=== PATIENT | male | born 1945 | race Caucasian/White ===

== ENCOUNTER 2018-08-02 11:58 | Inpatient (IN) | payer MEDICARE, OTHER ==
[2018-08-02] MEDS ORDERED: IPRATROPIUM (NEB) 0.5 MG/2.5 ML AMP NEB (13:38)
[2018-08-02] MEDS: DEXAMETHASONE (1 MG/ML PO SYG) PO (14:04)
[2018-08-02] MEDS: ALBUTEROL 0.083% (NEB) 2.5 MG/3 ML AMP NEB (14:18)
[2018-08-02] MEDS: IPRATROPIUM (NEB) 0.5 MG/2.5 ML AMP HHN (14:19)
[2018-08-02 16:59] LABS: ADD MAN DIFF? NO
[2018-08-02 17:00] LABS: WHITE BLOOD COUNT 9.7 10^3/ul (4.8-10.8)
[2018-08-02 17:00] LABS: BASOPHILS % 0.4 % (0.0-2.0); EOSINOPHILS # 0.1 10^3/ul (0.0-0.5); EOSINOPHILS % 0.6 % (0.0-7.0); HEMATOCRIT 37.7 % (42.0-52.0); HEMOGLOBIN 11.8 g/dl (14.0-18.0); LYMPHOCYTES # 0.8 10^3/ul (0.8-2.9); LYMPHOCYTES % 7.9 % (15.0-51.0); MEAN CORPUSCULAR HEMOGLOBIN 26.3 pg (29.0-33.0); MEAN CORPUSCULAR HGB CONC 31.3 g/dl (32.0-37.0); MEAN CORPUSCULAR VOLUME 84.2 fl (82.0-101.0); MEAN PLATELET VOLUME 9.4 fl (7.4-10.4); MONOCYTE # 0.3 10^3/ul (0.3-0.9); NEUTROPHIL # 8.5 10^3/ul (1.6-7.5); NEUTROPHILS % 87.5 % (39.0-77.0); PLATELET COUNT 254 10^3/UL (140-415); RED BLOOD COUNT 4.48 10^6/ul (4.70-6.10); RED CELL DISTRIBUTION WIDTH 14.4 % (11.5-14.5)
[2018-08-02 17:18] LABS: ALANINE AMINOTRANSFERASE 15 IU/L (13-69); ALBUMIN 4.5 g/dl (3.3-4.9); ALBUMIN/GLOBULIN RATIO 1.25; ALKALINE PHOSPHATASE 99 IU/L (42-121); ANION GAP 11 (5-13); ASPARTATE AMINO TRANSFERASE 15 IU/L (15-46); BILIRUBIN,INDIRECT 0.3 mg/dl (0-1.1); BILIRUBIN,TOTAL 0.3 mg/dl (0.2-1.3); BLOOD UREA NITROGEN 18 mg/dl (7-20); CARBON DIOXIDE 33 mmol/L (21-31); CHLORIDE 98 mmol/L (97-110); CREATININE 0.82 mg/dl (0.61-1.24); GLUCOSE 212 mg/dl (70-220); POTASSIUM 3.2 mmol/L (3.5-5.1); SODIUM 142 mmol/L (135-144); TOTAL PROTEIN 8.1 g/dl (6.1-8.1)
[2018-08-02] MEDS ORDERED: ONDANSETRON 4 MG INJ IV ×2 (18:00→20:30)
[2018-08-02] MEDS ORDERED: ACETAMINOPHEN 325 MG TAB PO ×2 (18:00→20:30)
[2018-08-02] MEDS ORDERED: GUAIFENESIN/CODEINE 5ML CUP PO (20:30)
[2018-08-02] MEDS ORDERED: HYDROCODONE/APAP (5/325) TAB PO (20:30)
[2018-08-02] MEDS ORDERED: ALBUTEROL/IPRATROPIUM (NEB) 3 ML AMP HHN (20:30)
[2018-08-02] MEDS ORDERED: NACL 0.9% 3 ML SYG IV (20:30)
[2018-08-02] MEDS ORDERED: GLUCOSE GEL 15 GRAM TUBE PO ×2 (21:30)
[2018-08-02] MEDS ORDERED: DEXTROSE 50% 50 ML SYRINGE IV ×2 (21:30)
[2018-08-02] MEDS ORDERED: GLUCOSE GEL 15 GRAM TUBE BUCCAL (21:30)
[2018-08-02] MEDS ORDERED: GLUCAGON 1 MG INJ IM (21:30)
[2018-08-02] MEDS: BUDESONIDE (NEB) 0.5MG/2ML AMP HHN (21:55)
[2018-08-02] MEDS: CEFEPIME 1GM/50 ML (PMX) 50 ML IVPB (22:04)
[2018-08-02] MEDS: POTASSIUM CHLORIDE 20 MEQ POWDER FOR ORAL SOLN PO (22:05)
[2018-08-02] MEDS: predniSONE 5 MG TAB PO (22:05)
[2018-08-02] MEDS: TAMSULOSIN (SR) 0.4 MG CAP PO (22:09)
[2018-08-02] MEDS: INSULIN ASPART [NOVOLOG] 3 ML PEN SC (22:22)
[2018-08-02] MEDS: SOD CHLORIDE 0.9% 1,000 ML IV (22:25)
[2018-08-03] MEDS: ACCU-CHEK XX (02:00)
[2018-08-03 05:22] LABS: ADD MAN DIFF? NO
[2018-08-03 05:26] LABS: WHITE BLOOD COUNT 8.9 10^3/ul (4.8-10.8)
[2018-08-03 05:26] LABS: BASOPHILS % 0.2 % (0.0-2.0); EOSINOPHILS % 0.1 % (0.0-7.0); HEMATOCRIT 35.9 % (42.0-52.0); HEMOGLOBIN 11.5 g/dl (14.0-18.0); LYMPHOCYTES # 0.6 10^3/ul (0.8-2.9); LYMPHOCYTES % 7.2 % (15.0-51.0); MEAN CORPUSCULAR HEMOGLOBIN 26.7 pg (29.0-33.0); MEAN CORPUSCULAR VOLUME 83.5 fl (82.0-101.0); MEAN PLATELET VOLUME 9.6 fl (7.4-10.4); MONOCYTE # 0.4 10^3/ul (0.3-0.9); MONOCYTES % 4.1 % (0.0-11.0); NEUTROPHIL # 7.8 10^3/ul (1.6-7.5); NEUTROPHILS % 87.9 % (39.0-77.0); PLATELET COUNT 236 10^3/UL (140-415); RED CELL DISTRIBUTION WIDTH 14.3 % (11.5-14.5)
[2018-08-03 06:23] LABS: ALANINE AMINOTRANSFERASE 14 IU/L (13-69); ALBUMIN 4.2 g/dl (3.3-4.9); ALBUMIN/GLOBULIN RATIO 1.31; ALKALINE PHOSPHATASE 84 IU/L (42-121); ANION GAP 8 (5-13); ASPARTATE AMINO TRANSFERASE 18 IU/L (15-46); BILIRUBIN,INDIRECT 0.5 mg/dl (0-1.1); BILIRUBIN,TOTAL 0.5 mg/dl (0.2-1.3); BLOOD UREA NITROGEN 18 mg/dl (7-20); CALCIUM 9.9 mg/dl (8.4-10.2); CARBON DIOXIDE 29 mmol/L (21-31); CHLORIDE 103 mmol/L (97-110); CHOLESTEROL 151 mg/dl (100-200); CREATININE 0.62 mg/dl (0.61-1.24); GLUCOSE 232 mg/dl (70-220); HDL CHOLESTEROL 49 mg/dl (31-75); LDL CHOLESTEROL,CALCULATED 88 mg/dl; MAGNESIUM 2.3 mg/dl (1.7-2.5); POTASSIUM 4.2 mmol/L (3.5-5.1); SODIUM 140 mmol/L (135-144); TOTAL PROTEIN 7.4 g/dl (6.1-8.1); TRIGLYCERIDES 72 mg/dl (0-149)
[2018-08-03] MEDS: PANTOPRAZOLE (EC) 40 MG TAB PO (06:36)
[2018-08-03] MEDS: ALBUTEROL/IPRATROPIUM (NEB) 3 ML AMP HHN ×3 (08:00→14:24)
[2018-08-03] MEDS: INSULIN ASPART [NOVOLOG] 3 ML PEN SC ×2 (08:20→12:40)
[2018-08-03] MEDS: FINASTERIDE 5 MG TAB PO (08:21)
[2018-08-03] MEDS: ASPIRIN (EC) 81 MG TAB PO (08:21)
[2018-08-03] MEDS: NIFEdipine (XL) 90 MG TAB PO (08:22)
[2018-08-03] MEDS: HYDROCHLOROTHIAZIDE 25 MG TAB PO (08:22)
[2018-08-03] MEDS: predniSONE 5 MG TAB PO (08:22)
[2018-08-03] MEDS: BUDESONIDE (NEB) 0.5MG/2ML AMP HHN ×2 (08:45→11:36)
[2018-08-03 10:20] LABS: THYROID STIMULATING HORMONE 0.422 MIU/L (0.465-4.680)
[2018-08-03] MEDS: LISINOPRIL 20 MG TAB PO (10:22)
[2018-08-03 11:52] LABS: HEMOGLOBIN A1C 6.5 % (0-5.9)
[2018-08-03] MEDS ORDERED: ATORVASTATIN 20 MG TAB PO (21:00)
== END 2018-08-03 14:57 | disposition home or self-care (01) | DRG 202 ==
LOC: FTE 11:58 → MS1 17:42
DX: J20.8 Acute bronchitis due to other specified organisms (principal); J86.9 Pyothorax without fistula; Z85.46 Personal history of malignant neoplasm of prostate; R91.1 Solitary pulmonary nodule
CPT/HCPCS: 71046; 71250; 80053; 80061; 82962; 83036; 83735; 84443; 85025; 94640; 94664; 99285-25

== ENCOUNTER 2018-09-27 12:24 | Emergency (ER) | payer SELFPAY, OTHER, MEDICARE | END 2018-09-27 15:00 | disposition left against medical advice (07) | LOC: E/R 12:24 | DX: Z53.21 Procedure and treatment not carried out due to patient leaving prior to being seen by health care provider (principal) ==

== ENCOUNTER 2018-10-23 02:37 | Inpatient (IN) | payer MEDICARE, OTHER ==
[2018-10-23 02:56] LABS: ADD MAN DIFF? NO
[2018-10-23 02:58] LABS: BASOPHIL # 0.1 10^3/ul (0.0-0.1); BASOPHILS % 0.7 % (0.0-2.0); EOSINOPHILS # 0.3 10^3/ul (0.0-0.5); EOSINOPHILS % 2.2 % (0.0-7.0); HEMATOCRIT 36.7 % (42.0-52.0); HEMOGLOBIN 11.4 g/dl (14.0-18.0); MEAN CORPUSCULAR HEMOGLOBIN 25.9 pg (29.0-33.0); MEAN CORPUSCULAR HGB CONC 31.1 g/dl (32.0-37.0); MEAN CORPUSCULAR VOLUME 83.2 fl (82.0-101.0); MEAN PLATELET VOLUME 9.3 fl (7.4-10.4); MONOCYTE # 1.1 10^3/ul (0.3-0.9); MONOCYTES % 8.4 % (0.0-11.0); NEUTROPHILS % 64.2 % (39.0-77.0); PLATELET COUNT 314 10^3/UL (140-415); RED BLOOD COUNT 4.41 10^6/ul (4.70-6.10); RED CELL DISTRIBUTION WIDTH 14.4 % (11.5-14.5)
[2018-10-23 02:58] LABS: WHITE BLOOD COUNT 12.5 10^3/ul (4.8-10.8)
[2018-10-23] MEDS: IPRATROPIUM (NEB) 0.5 MG/2.5 ML AMP INH (02:59)
[2018-10-23] MEDS: ALBUTEROL 0.5% (NEB) 2.5 MG/0.5 ML AMP INH (02:59)
[2018-10-23] MEDS: METHYLPREDNISOLONE 125 MG INJ IV ×2 (03:08→08:45)
[2018-10-23] MEDS: CEFEPIME 2GM/50 ML (PMX) 50 ML IVPB (03:08)
[2018-10-23 03:17] LABS: ALANINE AMINOTRANSFERASE 17 IU/L (13-69); ALBUMIN 4.3 g/dl (3.3-4.9); ALKALINE PHOSPHATASE 105 IU/L (42-121); ANION GAP 12 (5-13); ASPARTATE AMINO TRANSFERASE 18 IU/L (15-46); BILIRUBIN,INDIRECT 0.3 mg/dl (0-1.1); BILIRUBIN,TOTAL 0.3 mg/dl (0.2-1.3); BLOOD UREA NITROGEN 28 mg/dl (7-20); CALCIUM 9.9 mg/dl (8.4-10.2); CARBON DIOXIDE 29 mmol/L (21-31); CHLORIDE 105 mmol/L (97-110); GLUCOSE 129 mg/dl (70-220); POTASSIUM 3.2 mmol/L (3.5-5.1); SODIUM 146 mmol/L (135-144); TOTAL PROTEIN 7.6 g/dl (6.1-8.1)
[2018-10-23 03:29] LABS: B-TYPE NATRIURETIC PEPTIDE 476 PG/ML (0-125); TROPONIN-I < 0.012 ng/ml (0.000-0.120)
[2018-10-23 03:32] LABS: AADO2 Arterial 92.6 mmHg (7.0-24.0); Allen Test ACCEPTAB; Arterial Base Excess 2.1 mmol/L (-3.0-3); Arterial Blood Gas Oxygen Sat 99.5 mmHG (95.0-100.0); Arterial COHb 0.2 % (0.0-3.0); Arterial Fraction of Oxyhgb 98.9 % (93.0-99.0); Arterial HCO3 27.6 mmol/L (22.0-26.0); Arterial MetHb 0.4 % (0.0-1.5); Arterial pCO2 46.6 mmhg (35-45); Blood Gas IEPAP 16/5; Blood Gas PS 11; MODE MASK - BIPAP; Site Right Radial
[2018-10-23 03:40] LABS: INR 0.79; PROTIME 11.1 Sec (11.9-14.9); PT RATIO 0.9
[2018-10-23] MEDS: VANCOMYCIN 1 GM (PMX) 250 ML IVPB (03:40)
[2018-10-23 03:41] LABS: PARTIAL THROMBOPLASTIN TIME 28.1 Sec (23.0-35.0)
[2018-10-23] MEDS ORDERED: ALBUTEROL/IPRATROPIUM (NEB) 3 ML AMP HHN ×2 (06:00→06:30)
[2018-10-23 06:16] LABS: LACTIC ACID 2.1 mmol/L (0.5-2.0)
[2018-10-23] MEDS ORDERED: ONDANSETRON 4 MG INJ IV (06:30)
[2018-10-23] MEDS ORDERED: ACETAMINOPHEN 325 MG TAB PO (06:30)
[2018-10-23] MEDS ORDERED: NACL 0.9% 3 ML SYG IV (06:30)
[2018-10-23] MEDS: ALBUTEROL/IPRATROPIUM (NEB) 3 ML AMP HHN ×3 (08:00→20:31)
[2018-10-23] MEDS: LEVOFLOXACIN 500MG/D5W (PMX) 100 ML IVPB (08:44)
[2018-10-23] MEDS: NIFEdipine (XL) 90 MG TAB PO (08:45)
[2018-10-23] MEDS: predniSONE 5 MG TAB PO (08:45)
[2018-10-23] MEDS: PANTOPRAZOLE (EC) 40 MG TAB PO (08:45)
[2018-10-23] MEDS: ALBUTEROL HFA 8 GM INHALER INH ×4 (08:46→20:00)
[2018-10-23] MEDS: ASPIRIN (EC) 81 MG TAB PO (08:46)
[2018-10-23] MEDS: LINAGLIPTIN 5 MG TABLET PO (08:46)
[2018-10-23] MEDS: FINASTERIDE 5 MG TAB PO (08:46)
[2018-10-23] MEDS ORDERED: NON-FORMULARY/PATIENT OWN MED (Linaclotide (Linzess) 145 MCG) PO (09:00)
[2018-10-23] MEDS ORDERED: NON-FORMULARY/PATIENT OWN MED (Dexlansoprazole (Dexilant) 60 MG) PO (09:00)
[2018-10-23] MEDS ORDERED: NON-FORMULARY/PATIENT OWN MED (Abiraterone Acetate (Zytiga) 1,000 MG) PO (09:00)
[2018-10-23] MEDS ORDERED: NON-FORMULARY/PATIENT OWN MED (Budesonide-Formoterol Fumarate* (Symbicort*) 2 PUFF) INHALATION (09:00)
[2018-10-23] MEDS: BUDESONIDE (NEB) 0.5MG/2ML AMP INH ×2 (09:00→20:31)
[2018-10-23] MEDS: ARFORMOTEROL TARTRATE 15MCG/2 ML AMP INH ×2 (09:00→20:31)
[2018-10-23] MEDS: HEPARIN 5,000 UNIT/1 ML VIAL SC ×2 (09:03→21:59)
[2018-10-23 11:39] LABS: LACTIC ACID 4.2 mmol/L (0.5-2.0)
[2018-10-23] MEDS: POTASSIUM CHLORIDE 10 MEQ in SOD CHLORIDE 0.45% 1,000 ML IV (16:03)
[2018-10-23] MEDS ORDERED: METHYLPREDNISOLONE 125 MG INJ IV (21:00)
[2018-10-23] MEDS: TAMSULOSIN (SR) 0.4 MG CAP PO (21:52)
[2018-10-23] MEDS: ATORVASTATIN 20 MG TAB PO (21:52)
[2018-10-23] MEDS: METHYLPREDNISOLONE 40 MG INJ IV (22:02)
[2018-10-24] MEDS: ALBUTEROL/IPRATROPIUM (NEB) 3 ML AMP HHN ×4 (01:47→19:23)
[2018-10-24] MEDS ORDERED: VANCOMYCIN IV PER PHARMACY XX (03:00)
[2018-10-24] MEDS: POTASSIUM CHLORIDE 10 MEQ in SOD CHLORIDE 0.45% 1,000 ML IV ×3 (04:01→15:06)
[2018-10-24] MEDS: PANTOPRAZOLE (EC) 40 MG TAB PO (06:24)
[2018-10-24 06:31] LABS: ADD MAN DIFF? NO
[2018-10-24 06:33] LABS: WHITE BLOOD COUNT 8.4 10^3/ul (4.8-10.8)
[2018-10-24 06:33] LABS: BASOPHILS % 0.1 % (0.0-2.0); HEMATOCRIT 32.1 % (42.0-52.0); HEMOGLOBIN 10.1 g/dl (14.0-18.0); LYMPHOCYTES # 0.7 10^3/ul (0.8-2.9); LYMPHOCYTES % 7.7 % (15.0-51.0); MEAN CORPUSCULAR HEMOGLOBIN 26.2 pg (29.0-33.0); MEAN CORPUSCULAR HGB CONC 31.5 g/dl (32.0-37.0); MEAN CORPUSCULAR VOLUME 83.4 fl (82.0-101.0); MEAN PLATELET VOLUME 9.9 fl (7.4-10.4); MONOCYTE # 0.6 10^3/ul (0.3-0.9); MONOCYTES % 7.4 % (0.0-11.0); NEUTROPHIL # 7.1 10^3/ul (1.6-7.5); NEUTROPHILS % 84.4 % (39.0-77.0); PLATELET COUNT 261 10^3/UL (140-415); RED BLOOD COUNT 3.85 10^6/ul (4.70-6.10); RED CELL DISTRIBUTION WIDTH 14.6 % (11.5-14.5)
[2018-10-24 07:05] LABS: ALANINE AMINOTRANSFERASE 18 IU/L (13-69); ALBUMIN 3.9 g/dl (3.3-4.9); ALBUMIN/GLOBULIN RATIO 1.25; ALKALINE PHOSPHATASE 90 IU/L (42-121); ANION GAP 8 (5-13); ASPARTATE AMINO TRANSFERASE 14 IU/L (15-46); BILIRUBIN,INDIRECT 0.3 mg/dl (0-1.1); BILIRUBIN,TOTAL 0.3 mg/dl (0.2-1.3); BLOOD UREA NITROGEN 22 mg/dl (7-20); CALCIUM 9.2 mg/dl (8.4-10.2); CARBON DIOXIDE 28 mmol/L (21-31); CHLORIDE 107 mmol/L (97-110); CREATININE 0.76 mg/dl (0.61-1.24); GLUCOSE 223 mg/dl (70-220); MAGNESIUM 2.2 mg/dl (1.7-2.5); POTASSIUM 3.6 mmol/L (3.5-5.1); SODIUM 143 mmol/L (135-144)
[2018-10-24 07:24] LABS: LACTIC ACID 3.3 mmol/L (0.5-2.0)
[2018-10-24] MEDS: LINAGLIPTIN 5 MG TABLET PO (08:31)
[2018-10-24] MEDS: FINASTERIDE 5 MG TAB PO (08:31)
[2018-10-24] MEDS: NIFEdipine (XL) 90 MG TAB PO (08:31)
[2018-10-24] MEDS: ASPIRIN (EC) 81 MG TAB PO (08:31)
[2018-10-24] MEDS: METHYLPREDNISOLONE 40 MG INJ IV (08:31)
[2018-10-24] MEDS: ALBUTEROL HFA 8 GM INHALER INH ×4 (08:32→23:52)
[2018-10-24] MEDS: HEPARIN 5,000 UNIT/1 ML VIAL SC ×2 (08:39→22:32)
[2018-10-24] MEDS: ARFORMOTEROL TARTRATE 15MCG/2 ML AMP INH ×2 (09:04→19:23)
[2018-10-24] MEDS: BUDESONIDE (NEB) 0.5MG/2ML AMP INH ×2 (09:04→19:23)
[2018-10-24] MEDS ORDERED: GLUCOSE GEL 15 GRAM TUBE PO ×2 (13:00)
[2018-10-24] MEDS ORDERED: GLUCAGON 1 MG INJ IM (13:00)
[2018-10-24] MEDS ORDERED: GLUCOSE GEL 15 GRAM TUBE BUCCAL (13:00)
[2018-10-24] MEDS ORDERED: DEXTROSE 50% 50 ML SYRINGE IV ×2 (13:00)
[2018-10-24] MEDS: INSULIN GLARGINE [LANTus] (100 UNITS/ML) SYG SC (14:06)
[2018-10-24] MEDS: VANCOMYCIN 750 MG (PMX) 250 ML IVPB (16:30)
[2018-10-24] MEDS: INSULIN ASPART [NOVOLOG] 3 ML PEN SC ×2 (17:12→21:00)
[2018-10-24] MEDS ORDERED: VANCOMYCIN HCL 1.25 GM in SOD CHLORIDE 0.9% 250 ML IVPB (22:00)
[2018-10-24] MEDS: ATORVASTATIN 20 MG TAB PO (22:21)
[2018-10-24] MEDS: TAMSULOSIN (SR) 0.4 MG CAP PO (22:21)
[2018-10-25] MEDS: ALBUTEROL/IPRATROPIUM (NEB) 3 ML AMP HHN ×3 (01:34→14:09)
[2018-10-25] MEDS: VANCOMYCIN 750 MG (PMX) 250 ML IVPB (04:35)
[2018-10-25] MEDS: POTASSIUM CHLORIDE 10 MEQ in SOD CHLORIDE 0.45% 1,000 ML IV (04:36)
[2018-10-25] MEDS: PANTOPRAZOLE (EC) 40 MG TAB PO (05:36)
[2018-10-25 06:07] LABS: ADD MAN DIFF? NO
[2018-10-25 06:11] LABS: WHITE BLOOD COUNT 9.2 10^3/ul (4.8-10.8)
[2018-10-25 06:11] LABS: BASOPHILS % 0.4 % (0.0-2.0); EOSINOPHILS # 0.1 10^3/ul (0.0-0.5); EOSINOPHILS % 1.5 % (0.0-7.0); HEMATOCRIT 32.4 % (42.0-52.0); HEMOGLOBIN 10.1 g/dl (14.0-18.0); LYMPHOCYTES # 1.4 10^3/ul (0.8-2.9); LYMPHOCYTES % 14.6 % (15.0-51.0); MEAN CORPUSCULAR HEMOGLOBIN 25.9 pg (29.0-33.0); MEAN CORPUSCULAR HGB CONC 31.2 g/dl (32.0-37.0); MEAN CORPUSCULAR VOLUME 83.1 fl (82.0-101.0); MEAN PLATELET VOLUME 9.8 fl (7.4-10.4); MONOCYTE # 0.8 10^3/ul (0.3-0.9); MONOCYTES % 8.1 % (0.0-11.0); NEUTROPHIL # 6.9 10^3/ul (1.6-7.5); NEUTROPHILS % 74.6 % (39.0-77.0); PLATELET COUNT 245 10^3/UL (140-415); RED CELL DISTRIBUTION WIDTH 14.6 % (11.5-14.5)
[2018-10-25 07:02] LABS: ANION GAP 9 (5-13); BLOOD UREA NITROGEN 20 mg/dl (7-20); CALCIUM 9.1 mg/dl (8.4-10.2); CARBON DIOXIDE 26 mmol/L (21-31); CHLORIDE 109 mmol/L (97-110); CREATININE 0.68 mg/dl (0.61-1.24); GLUCOSE 120 mg/dl (70-220); POTASSIUM 3.6 mmol/L (3.5-5.1); SODIUM 144 mmol/L (135-144)
[2018-10-25 07:08] LABS: LACTIC ACID 2.4 mmol/L (0.5-2.0)
[2018-10-25] MEDS: INSULIN ASPART [NOVOLOG] 3 ML PEN SC ×2 (07:55→11:52)
[2018-10-25] MEDS: ALBUTEROL HFA 8 GM INHALER INH ×2 (08:00→11:52)
[2018-10-25] MEDS: METHYLPREDNISOLONE 40 MG INJ IV (08:39)
[2018-10-25] MEDS: FINASTERIDE 5 MG TAB PO (08:40)
[2018-10-25] MEDS: LINAGLIPTIN 5 MG TABLET PO (08:40)
[2018-10-25] MEDS: ASPIRIN (EC) 81 MG TAB PO (08:40)
[2018-10-25] MEDS: NIFEdipine (XL) 90 MG TAB PO (08:40)
[2018-10-25] MEDS: BUDESONIDE (NEB) 0.5MG/2ML AMP INH (08:43)
[2018-10-25] MEDS: HEPARIN 5,000 UNIT/1 ML VIAL SC (08:47)
[2018-10-25] MEDS: ARFORMOTEROL TARTRATE 15MCG/2 ML AMP INH (10:00)
== END 2018-10-25 15:07 | disposition home or self-care (01) | DRG 872 ==
LOC: 6WM 10-25 04:25 → E/R 02:37 → 6WM 04:10
PROC: 5A09357 Assistance with Respiratory Ventilation, Less than 24 Consecutive Hours, Continuous Positive Airway Pressure (ICD-10-PCS; principal; 2018-10-23)
PROC: 4A033R1 Measurement of Arterial Saturation, Peripheral, Percutaneous Approach (ICD-10-PCS; 2018-10-23)
DX: A41.9 Sepsis, unspecified organism (principal); J44.1 Chronic obstructive pulmonary disease with (acute) exacerbation; C78.00 Secondary malignant neoplasm of unspecified lung; E87.2 Acidosis; J06.9 Acute upper respiratory infection, unspecified; J40 Bronchitis, not specified as acute or chronic; C61 Malignant neoplasm of prostate; E11.9 Type 2 diabetes mellitus without complications; E78.5 Hyperlipidemia, unspecified; I10 Essential (primary) hypertension; Z79.84 Long term (current) use of oral hypoglycemic drugs
CPT/HCPCS: 36415; 36600; 71045; 80048; 80053; 82803; 82962; 83605; 83735; 83880; 84484; 85025; 85610; 85730; 87040-91; 87070; 87086; 93005; 94640; 94644; 94660; 94664; 96365; 96375; 99285-25

== ENCOUNTER 2018-12-23 16:11 | Emergency (ER) | payer MEDICARE, OTHER ==
[2018-12-23 17:01] LABS: ADD MAN DIFF? NO
[2018-12-23 17:02] LABS: WHITE BLOOD COUNT 10.1 10^3/ul (4.8-10.8)
[2018-12-23 17:02] LABS: ABNORMAL IP MESSAGE 1; BASOPHILS % 0.2 % (0.0-2.0); EOSINOPHILS % 0.1 % (0.0-7.0); HEMATOCRIT 34.9 % (42.0-52.0); HEMOGLOBIN 11.4 g/dl (14.0-18.0); LYMPHOCYTES # 0.6 10^3/ul (0.8-2.9); LYMPHOCYTES % 5.8 % (15.0-51.0); MEAN CORPUSCULAR HEMOGLOBIN 26.5 pg (29.0-33.0); MEAN CORPUSCULAR HGB CONC 32.7 g/dl (32.0-37.0); MEAN PLATELET VOLUME 9.5 fl (7.4-10.4); MONOCYTE # 0.5 10^3/ul (0.3-0.9); MONOCYTES % 4.9 % (0.0-11.0); NEUTROPHIL # 8.9 10^3/ul (1.6-7.5); NEUTROPHILS % 88.2 % (39.0-77.0); PLATELET COUNT 270 10^3/UL (140-415); POSITIVE DIFF @See below; RED BLOOD COUNT 4.31 10^6/ul (4.70-6.10); RED CELL DISTRIBUTION WIDTH 15.9 % (11.5-14.5)
[2018-12-23 17:21] LABS: INR 0.93; PROTIME 12.6 Sec (11.9-14.9)
[2018-12-23 17:22] LABS: PARTIAL THROMBOPLASTIN TIME 27.3 Sec (23.0-35.0)
[2018-12-23 17:28] LABS: ANION GAP 9 (5-13); BLOOD UREA NITROGEN 31 mg/dl (7-20); CALCIUM 9.3 mg/dl (8.4-10.2); CARBON DIOXIDE 26 mmol/L (21-31); CHLORIDE 107 mmol/L (97-110); CREATININE 0.97 mg/dl (0.61-1.24); GLUCOSE 220 mg/dl (70-220); POTASSIUM 3.7 mmol/L (3.5-5.1); SODIUM 142 mmol/L (135-144)
[2018-12-23] MEDS: IOHEXOL 100 ML (18:07)
[2018-12-23] MEDS: SOD CHLORIDE 0.9% 100 ML (18:07)
[2018-12-23] MEDS: SOD CHLORIDE 0.9% 500 ML IV (18:42)
== END 2018-12-23 21:15 | disposition short-term general hospital (02) ==
LOC: E/R 16:11
DX: I67.1 Cerebral aneurysm, nonruptured (principal); I10 Essential (primary) hypertension; J44.9 Chronic obstructive pulmonary disease, unspecified; I77.74 Dissection of vertebral artery; H53.2 Diplopia; E86.0 Dehydration; D64.9 Anemia, unspecified; C79.9 Secondary malignant neoplasm of unspecified site; Z86.73 Personal history of transient ischemic attack (TIA), and cerebral infarction without residual deficits; Z85.46 Personal history of malignant neoplasm of prostate; Z79.4 Long term (current) use of insulin; Z87.891 Personal history of nicotine dependence
CPT/HCPCS: 36415; 70450; 70496; 70498; 80048; 85025; 85610; 85730; 99285-25

== ENCOUNTER 2019-02-04 03:27 | Inpatient (IN) | payer MEDICARE, OTHER ==
[2019-02-04] MEDS: LIDOCAINE 1%/EPI 30 ML INJ
[2019-02-04 03:41] LABS: ADD MAN DIFF? NO
[2019-02-04] MEDS: ALBUTEROL 0.5% (NEB) 2.5 MG/0.5 ML AMP INH (03:44)
[2019-02-04] MEDS: IPRATROPIUM (NEB) 0.5 MG/2.5 ML AMP INH (03:44)
[2019-02-04] MEDS: METHYLPREDNISOLONE 125 MG INJ IV (03:52)
[2019-02-04 04:03] LABS: INR 0.89; PROTIME 12.2 Sec (11.9-14.9)
[2019-02-04 04:04] LABS: WHITE BLOOD COUNT 8.2 10^3/ul (4.8-10.8)
[2019-02-04 04:04] LABS: BASOPHIL # 0.1 10^3/ul (0.0-0.1); BASOPHILS % 0.6 % (0.0-2.0); EOSINOPHILS # 0.1 10^3/ul (0.0-0.5); HEMATOCRIT 38.7 % (42.0-52.0); HEMOGLOBIN 11.8 g/dl (14.0-18.0); LYMPHOCYTES # 2.1 10^3/ul (0.8-2.9); LYMPHOCYTES % 25.1 % (15.0-51.0); MEAN CORPUSCULAR HGB CONC 30.5 g/dl (32.0-37.0); MEAN CORPUSCULAR VOLUME 85.4 fl (82.0-101.0); MEAN PLATELET VOLUME 8.9 fl (7.4-10.4); MONOCYTE # 0.9 10^3/ul (0.3-0.9); MONOCYTES % 10.4 % (0.0-11.0); NEUTROPHIL # 5.1 10^3/ul (1.6-7.5); NEUTROPHILS % 62.4 % (39.0-77.0); PLATELET COUNT 292 10^3/UL (140-415); RED BLOOD COUNT 4.53 10^6/ul (4.70-6.10); RED CELL DISTRIBUTION WIDTH 15.9 % (11.5-14.5)
[2019-02-04 04:05] LABS: ALANINE AMINOTRANSFERASE 14 IU/L (13-69); ALBUMIN 4.4 g/dl (3.3-4.9); ALBUMIN/GLOBULIN RATIO 1.33; ALKALINE PHOSPHATASE 163 IU/L (42-121); ANION GAP 10 (5-13); ASPARTATE AMINO TRANSFERASE 19 IU/L (15-46); BILIRUBIN,INDIRECT 0.5 mg/dl (0-1.1); BILIRUBIN,TOTAL 0.5 mg/dl (0.2-1.3); BLOOD UREA NITROGEN 24 mg/dl (7-20); CALCIUM 9.5 mg/dl (8.4-10.2); CARBON DIOXIDE 28 mmol/L (21-31); CHLORIDE 106 mmol/L (97-110); CREATININE 0.92 mg/dl (0.61-1.24); GLUCOSE 164 mg/dl (70-220); POTASSIUM 3.1 mmol/L (3.5-5.1); SODIUM 144 mmol/L (135-144); TOTAL PROTEIN 7.7 g/dl (6.1-8.1)
[2019-02-04 04:16] LABS: B-TYPE NATRIURETIC PEPTIDE 282 PG/ML (0-125); TROPONIN-I 0.021 ng/ml (0.000-0.120)
[2019-02-04 04:53] LABS: Allen Test ACCEPTAB; Arterial Base Excess -0.7 mmol/L (-3.0-3); Arterial Blood Gas Oxygen Sat 99.3 mmHG (95.0-100.0); Arterial COHb 0.3 % (0.0-3.0); Arterial Fraction of Oxyhgb 98.7 % (93.0-99.0); Arterial HCO3 25.6 mmol/L (22.0-26.0); Arterial MetHb 0.3 % (0.0-1.5); Arterial pCO2 48.8 mmhg (35-45); Blood Gas IEPAP 15/5; MODE MASK - BIPAP; Site Right Radial
[2019-02-04] MEDS: NITROGLYCERIN 2% 1 GM OINT PKT TD (05:20)
[2019-02-04] MEDS ORDERED: ONDANSETRON 4 MG INJ IV ×2 (05:30→22:00)
[2019-02-04] MEDS ORDERED: ACETAMINOPHEN 325 MG TAB PO (05:30)
[2019-02-04] MEDS: METHYLPREDNISOLONE 40 MG INJ IV ×3 (06:45→22:21)
[2019-02-04] MEDS ORDERED: ROCURONIUM 50 MG INJ ×2 (07:00→20:59)
[2019-02-04] MEDS ORDERED: ETOMIDATE 20 MG INJ (07:00)
[2019-02-04] MEDS ORDERED: SUCCINYLCHOLINE CHLORIDE 100 MG/5 ML SYG IV (07:00)
[2019-02-04 07:24] LABS: LACTIC ACID 1.1 mmol/L (0.5-2.0)
[2019-02-04] MEDS: LORAZEPAM 2 MG INJ IV (07:40)
[2019-02-04] MEDS: ENALAPRILAT 1.25 MG INJ IV ×2 (07:40→08:50)
[2019-02-04] MEDS: INSULIN ASPART [NOVOLOG] 3 ML PEN SC ×4 (08:00→22:39)
[2019-02-04 08:05] LABS: AADO2 Arterial 50.5 mmHg (7.0-24.0); Allen Test ACCEPTAB; Arterial Base Excess -4.4 mmol/L (-3.0-3); Arterial Blood Gas Oxygen Sat 96.4 mmHG (95.0-100.0); Arterial COHb 0 % (0.0-3.0); Arterial Fraction of Oxyhgb 96.1 % (93.0-99.0); Arterial HCO3 23.3 mmol/L (22.0-26.0); Arterial MetHb 0.3 % (0.0-1.5); Arterial pCO2 54.5 mmhg (35-45); Blood Gas IEPAP 18/5; Blood Gas PS 13; MODE MASK - BIPAP; Site Left Radial
[2019-02-04] MEDS: RACEPINEPHRINE 2.25%(NEB) 0.5 ML AMP HHN (08:47)
[2019-02-04] MEDS: LISINOPRIL 20 MG TAB PO (09:00)
[2019-02-04] MEDS: FINASTERIDE 5 MG TAB PO (09:00)
[2019-02-04] MEDS ORDERED: GLUCOSE GEL 15 GRAM TUBE BUCCAL (09:00)
[2019-02-04] MEDS ORDERED: GLUCAGON 1 MG INJ IM (09:00)
[2019-02-04] MEDS ORDERED: ENOXAPARIN 40 MG/0.4 ML SYG SC (09:00)
[2019-02-04] MEDS ORDERED: GLUCOSE GEL 15 GRAM TUBE PO ×2 (09:00)
[2019-02-04] MEDS ORDERED: DEXTROSE 50% 50 ML SYRINGE IV ×2 (09:00)
[2019-02-04] MEDS: NIFEdipine (XL) 90 MG TAB PO (09:00)
[2019-02-04] MEDS: HYDROCHLOROTHIAZIDE 25 MG TAB PO (09:00)
[2019-02-04] MEDS: LIDOCAINE 2%/EPI MPF (SDV) 20 ML VIAL INJ (09:30)
[2019-02-04] MEDS: FENTAnyl 50 MCG/ML VIAL IV ×2 (09:31→17:45)
[2019-02-04] MEDS: MIDAZOLAM (DRIP) 50 mg/50 mL 50 ML IV (09:59)
[2019-02-04] MEDS: IPRATROPIUM (NEB) 0.5 MG/2.5 ML AMP HHN ×3 (10:08→15:07)
[2019-02-04] MEDS: LEVALBUTEROL (NEB) 1.25 MG/0.5 ML AMP HHN ×3 (10:09→15:07)
[2019-02-04] MEDS: ACETYLCYSTEINE 20% 4 ML VIAL NEB ×3 (10:09→20:00)
[2019-02-04] MEDS: IOHEXOL 300MG/ML 150 ML BTL (11:00)
[2019-02-04] MEDS: SOD CHLORIDE 0.9% 100 ML (11:00)
[2019-02-04 11:57] LABS: AADO2 Arterial 285.2 mmHg (7.0-24.0); Allen Test ACCEPTAB; Arterial Blood Gas Oxygen Sat 99.4 mmHG (95.0-100.0); Arterial COHb 0.3 % (0.0-3.0); Arterial Fraction of Oxyhgb 98.7 % (93.0-99.0); Arterial HCO3 22.4 mmol/L (22.0-26.0); Arterial MetHb 0.4 % (0.0-1.5); Arterial pCO2 33.3 mmhg (35-45); MODE VENT - AC; Site Left Radial
[2019-02-04] MEDS: LEVOFLOXACIN 750MG/D5W (PMX) 150 ML IVPB (13:44)
[2019-02-04] MEDS ORDERED: MIDAZOLAM 1 MG/ML 2 ML INJ (17:35)
[2019-02-04] MEDS: MIDAZOLAM 1 MG/ML 2 ML INJ IV (17:45)
[2019-02-04] MEDS: PROPOFOL 100 ML IV (18:08)
[2019-02-04] MEDS ORDERED: SEVOFLURANE 15 MIN (21:00)
[2019-02-04] MEDS ORDERED: INSULIN GLARGINE [LANtus] 3 ML PEN SC (21:00)
[2019-02-04] MEDS ORDERED: NON-FORMULARY/PATIENT OWN MED (Rosuvastatin Calcium* (Crestor*) 10 MG) PO (21:00)
[2019-02-04] MEDS ORDERED: GLYCOPYRROLATE 0.4 MG INJ (21:14)
[2019-02-04] MEDS ORDERED: FENTAnyl 50 MCG/ML VIAL (21:14)
[2019-02-04] MEDS ORDERED: NEOSTIGMINE 3 MG/3 ML SYRINGE (21:14)
[2019-02-04] MEDS ORDERED: FENTAnyl 50 MCG/ML VIAL IV (22:00)
[2019-02-04] MEDS ORDERED: HYDROmorphONE 0.5 MG/0.5 ML SYG IV (22:00)
[2019-02-04] MEDS: PANTOPRAZOLE 40 MG INJ IV (22:21)
[2019-02-04] MEDS ORDERED: HYDROmorphONE 1 MG/ML SYG (22:26)
[2019-02-04] MEDS: HYDROmorphONE 1 MG/ML SYG IV (22:36)
[2019-02-04] MEDS: ATORVASTATIN 40 MG TAB PO (22:39)
[2019-02-04] MEDS: TAMSULOSIN (SR) 0.4 MG CAP PO (22:39)
[2019-02-04] MEDS: FENTAnyl (DRIP) 1000 mcg/100mL 100 ML IV (23:35)
[2019-02-05] MEDS: ACETYLCYSTEINE 20% 4 ML VIAL NEB ×4 (01:33→19:00)
[2019-02-05] MEDS: LEVALBUTEROL (HFA) 15 GM INHALER INH ×4 (01:34→19:00)
[2019-02-05] MEDS: IPRATROPIUM (HFA) 12.9 GM INHALER INH ×4 (01:34→19:00)
[2019-02-05] MEDS: ACCU-CHEK XX (02:00)
[2019-02-05 05:42] LABS: ADD MAN DIFF? NO
[2019-02-05] MEDS: METHYLPREDNISOLONE 40 MG INJ IV ×3 (05:52→20:53)
[2019-02-05] MEDS: PANTOPRAZOLE 40 MG INJ IV (05:52)
[2019-02-05] MEDS: MIDAZOLAM (DRIP) 50 mg/50 mL 50 ML IV ×2 (05:53→16:47)
[2019-02-05 05:57] LABS: ABNORMAL IP MESSAGE 1; BASOPHILS % 0.1 % (0.0-2.0); HEMATOCRIT 32.2 % (42.0-52.0); HEMOGLOBIN 10.1 g/dl (14.0-18.0); LYMPHOCYTES # 0.4 10^3/ul (0.8-2.9); LYMPHOCYTES % 3.4 % (15.0-51.0); MEAN CORPUSCULAR HEMOGLOBIN 26.4 pg (29.0-33.0); MEAN CORPUSCULAR HGB CONC 31.4 g/dl (32.0-37.0); MEAN CORPUSCULAR VOLUME 84.1 fl (82.0-101.0); MEAN PLATELET VOLUME 8.9 fl (7.4-10.4); MONOCYTE # 0.6 10^3/ul (0.3-0.9); MONOCYTES % 5.9 % (0.0-11.0); NEUTROPHIL # 9.7 10^3/ul (1.6-7.5); NEUTROPHILS % 89.9 % (39.0-77.0); PLATELET COUNT 265 10^3/UL (140-415); POSITIVE DIFF @See below; RED BLOOD COUNT 3.83 10^6/ul (4.70-6.10); RED CELL DISTRIBUTION WIDTH 15.9 % (11.5-14.5)
[2019-02-05 05:57] LABS: WHITE BLOOD COUNT 10.8 10^3/ul (4.8-10.8)
[2019-02-05 06:14] LABS: INR 1.07; PT RATIO 1.1
[2019-02-05 06:21] LABS: MAGNESIUM 2.3 mg/dl (1.7-2.5)
[2019-02-05 06:21] LABS: PHOSPHORUS 2.7 mg/dl (2.5-4.9)
[2019-02-05 06:33] LABS: ANION GAP 6 (5-13); BLOOD UREA NITROGEN 25 mg/dl (7-20); CALCIUM 8.8 mg/dl (8.4-10.2); CARBON DIOXIDE 27 mmol/L (21-31); CHLORIDE 109 mmol/L (97-110); GLUCOSE 217 mg/dl (70-220); POTASSIUM 3.2 mmol/L (3.5-5.1); SODIUM 142 mmol/L (135-144)
[2019-02-05 07:36] LABS: AADO2 Arterial 113.6 mmHg (7.0-24.0); Allen Test ACCEPTAB; Arterial Base Excess -0.5 mmol/L (-3.0-3); Arterial Blood Gas Oxygen Sat 98.5 mmHG (95.0-100.0); Arterial COHb 0.3 % (0.0-3.0); Arterial HCO3 22.2 mmol/L (22.0-26.0); Arterial MetHb 0.2 % (0.0-1.5); Arterial pCO2 29.9 mmhg (35-45); MODE VENT - AC; Site Right Radial
[2019-02-05] MEDS: INSULIN ASPART [NOVOLOG] 3 ML PEN SC ×4 (08:44→22:08)
[2019-02-05] MEDS: NIFEdipine (XL) 90 MG TAB PO (08:56)
[2019-02-05] MEDS: LEVOFLOXACIN 750MG/D5W (PMX) 150 ML IVPB (08:56)
[2019-02-05] MEDS: FINASTERIDE 5 MG TAB PO (08:56)
[2019-02-05] MEDS: LISINOPRIL 20 MG TAB PO (08:57)
[2019-02-05] MEDS: HYDROCHLOROTHIAZIDE 25 MG TAB PO (08:57)
[2019-02-05] MEDS ORDERED: ONDANSETRON 4 MG INJ IV (11:30)
[2019-02-05] MEDS: FENTAnyl (DRIP) 1000 mcg/100mL 100 ML IV (14:22)
[2019-02-05] MEDS: SOD CHLORIDE 0.9% 500 ML IV (17:48)
[2019-02-05] MEDS: D5W-0.45 NACL + KCL 20 MEQ 1,000 ML IV (17:51)
[2019-02-05] MEDS: ATORVASTATIN 40 MG TAB PO (20:52)
[2019-02-05] MEDS: INSULIN GLARGINE [LANTus] (100 UNITS/ML) SYG SC (20:58)
[2019-02-06] MEDS: IPRATROPIUM (HFA) 12.9 GM INHALER INH ×4 (01:00→19:00)
[2019-02-06] MEDS: LEVALBUTEROL (HFA) 15 GM INHALER INH ×4 (01:00→19:00)
[2019-02-06] MEDS: ACETYLCYSTEINE 20% 4 ML VIAL NEB ×4 (01:00→19:00)
[2019-02-06] MEDS: INSULIN ASPART [NOVOLOG] 3 ML PEN SC ×6 (01:14→20:55)
[2019-02-06] MEDS: D5W-0.45 NACL + KCL 20 MEQ 1,000 ML IV ×2 (03:28→14:32)
[2019-02-06] MEDS: MIDAZOLAM (DRIP) 50 mg/50 mL 50 ML IV ×2 (03:28→18:26)
[2019-02-06] MEDS: METHYLPREDNISOLONE 40 MG INJ IV (04:57)
[2019-02-06 06:28] LABS: WHITE BLOOD COUNT 10.8 10^3/ul (4.8-10.8)
[2019-02-06 06:28] LABS: ABNORMAL IP MESSAGE 1; ADD MAN DIFF? NO; BASOPHILS % 0.1 % (0.0-2.0); HEMOGLOBIN 9.8 g/dl (14.0-18.0); LYMPHOCYTES # 0.4 10^3/ul (0.8-2.9); LYMPHOCYTES % 3.4 % (15.0-51.0); MEAN CORPUSCULAR HGB CONC 30.6 g/dl (32.0-37.0); MEAN CORPUSCULAR VOLUME 84.9 fl (82.0-101.0); MEAN PLATELET VOLUME 9.2 fl (7.4-10.4); MONOCYTE # 0.9 10^3/ul (0.3-0.9); MONOCYTES % 8.4 % (0.0-11.0); NEUTROPHIL # 9.4 10^3/ul (1.6-7.5); NEUTROPHILS % 87.3 % (39.0-77.0); PLATELET COUNT 248 10^3/UL (140-415); POSITIVE DIFF @See below; RED BLOOD COUNT 3.77 10^6/ul (4.70-6.10); RED CELL DISTRIBUTION WIDTH 16.1 % (11.5-14.5)
[2019-02-06 06:51] LABS: INR 1.08; PROTIME 14.1 Sec (11.9-14.9); PT RATIO 1.1
[2019-02-06 06:56] LABS: MAGNESIUM 2.4 mg/dl (1.7-2.5)
[2019-02-06 06:56] LABS: PHOSPHORUS 1.9 mg/dl (2.5-4.9)
[2019-02-06 06:57] LABS: ANION GAP 5 (5-13); BLOOD UREA NITROGEN 20 mg/dl (7-20); CALCIUM 8.5 mg/dl (8.4-10.2); CARBON DIOXIDE 27 mmol/L (21-31); CHLORIDE 109 mmol/L (97-110); CREATININE 0.65 mg/dl (0.61-1.24); GLUCOSE 215 mg/dl (70-220); POTASSIUM 3.6 mmol/L (3.5-5.1); SODIUM 141 mmol/L (135-144)
[2019-02-06] MEDS: FENTAnyl (DRIP) 1000 mcg/100mL 100 ML IV ×2 (07:07→21:44)
[2019-02-06 07:33] LABS: THYROID STIMULATING HORMONE 0.819 MIU/L (0.465-4.680)
[2019-02-06] MEDS: FINASTERIDE 5 MG TAB PO (08:34)
[2019-02-06] MEDS: LISINOPRIL 20 MG TAB PO (08:34)
[2019-02-06] MEDS: FAMOTIDINE 20 MG INJ IV (08:34)
[2019-02-06] MEDS: NIFEdipine 10 MG CAP GTB ×3 (08:35→20:53)
[2019-02-06] MEDS: ENOXAPARIN 40 MG/0.4 ML SYG SC (08:51)
[2019-02-06] MEDS ORDERED: ENOXAPARIN 30 MG/0.3 ML SYG SC (09:00)
[2019-02-06] MEDS: DOCUSATE SODIUM 10 MG/ML (10ML CUP) GTB ×2 (12:37→20:52)
[2019-02-06] MEDS: POTASSIUM PHOSPHATE 15 MM in SOD CHLORIDE 0.9% 250 ML IVPB (13:00)
[2019-02-06] MEDS: HYDROCORTISONE 25 MG SUPP PR ×2 (15:15→20:53)
[2019-02-06] MEDS: ATORVASTATIN 40 MG TAB PO (20:53)
[2019-02-06] MEDS: INSULIN GLARGINE [LANTus] (100 UNITS/ML) SYG SC (21:01)
[2019-02-07] MEDS: INSULIN ASPART [NOVOLOG] 3 ML PEN SC ×6 (01:00→21:09)
[2019-02-07] MEDS: LEVALBUTEROL (HFA) 15 GM INHALER INH ×2 (01:02→07:08)
[2019-02-07] MEDS: ACETYLCYSTEINE 20% 4 ML VIAL NEB ×4 (01:02→20:02)
[2019-02-07] MEDS: IPRATROPIUM (HFA) 12.9 GM INHALER INH ×2 (01:02→07:08)
[2019-02-07] MEDS: D5W-0.45 NACL + KCL 20 MEQ 1,000 ML IV (04:56)
[2019-02-07] MEDS: MIDAZOLAM (DRIP) 50 mg/50 mL 50 ML IV (05:40)
[2019-02-07 05:43] LABS: ADD MAN DIFF? NO
[2019-02-07 05:59] LABS: BASOPHILS % 0.2 % (0.0-2.0); EOSINOPHILS % 0.2 % (0.0-7.0); HEMATOCRIT 34.6 % (42.0-52.0); HEMOGLOBIN 10.7 g/dl (14.0-18.0); LYMPHOCYTES # 0.9 10^3/ul (0.8-2.9); LYMPHOCYTES % 9.5 % (15.0-51.0); MEAN CORPUSCULAR HEMOGLOBIN 26.5 pg (29.0-33.0); MEAN CORPUSCULAR HGB CONC 30.9 g/dl (32.0-37.0); MEAN CORPUSCULAR VOLUME 85.6 fl (82.0-101.0); MEAN PLATELET VOLUME 9.4 fl (7.4-10.4); MONOCYTES % 10.7 % (0.0-11.0); NEUTROPHILS % 78.3 % (39.0-77.0); PLATELET COUNT 244 10^3/UL (140-415); RED BLOOD COUNT 4.04 10^6/ul (4.70-6.10); RED CELL DISTRIBUTION WIDTH 16.1 % (11.5-14.5)
[2019-02-07 06:02] LABS: ANION GAP 3 (5-13); BLOOD UREA NITROGEN 21 mg/dl (7-20); CALCIUM 8.7 mg/dl (8.4-10.2); CARBON DIOXIDE 29 mmol/L (21-31); CHLORIDE 109 mmol/L (97-110); CREATININE 0.64 mg/dl (0.61-1.24); GLUCOSE 149 mg/dl (70-220); POTASSIUM 3.4 mmol/L (3.5-5.1); SODIUM 141 mmol/L (135-144)
[2019-02-07 06:04] LABS: MAGNESIUM 2.4 mg/dl (1.7-2.5)
[2019-02-07] MEDS: DOCUSATE SODIUM 10 MG/ML (10ML CUP) GTB ×2 (09:10→21:04)
[2019-02-07] MEDS: HYDROCORTISONE 25 MG SUPP PR ×2 (09:11→21:04)
[2019-02-07] MEDS: LISINOPRIL 20 MG TAB PO (09:11)
[2019-02-07] MEDS: FINASTERIDE 5 MG TAB PO (09:11)
[2019-02-07] MEDS: NIFEdipine 10 MG CAP GTB ×3 (09:11→21:04)
[2019-02-07] MEDS: ENOXAPARIN 40 MG/0.4 ML SYG SC (09:13)
[2019-02-07] MEDS: METHYLPREDNISOLONE 40 MG INJ IV (09:17)
[2019-02-07] MEDS: FAMOTIDINE 20 MG INJ IV (09:28)
[2019-02-07 10:26] LABS: AADO2 Arterial 100.1 mmHg (7.0-24.0); Allen Test ACCEPTAB; Arterial Base Excess -1.4 mmol/L (-3.0-3); Arterial Blood Gas Oxygen Sat 95.9 mmHG (95.0-100.0); Arterial COHb 0.3 % (0.0-3.0); Arterial Fraction of Oxyhgb 95.4 % (93.0-99.0); Arterial HCO3 21.7 mmol/L (22.0-26.0); Arterial MetHb 0.2 % (0.0-1.5); Arterial pCO2 31.6 mmhg (35-45); Blood Gas PS 10; MODE VENT - CPAP; Site Right Radial
[2019-02-07] MEDS: LEVALBUTEROL (NEB) 1.25 MG/0.5 ML AMP HHN ×2 (13:54→20:02)
[2019-02-07] MEDS: IPRATROPIUM (NEB) 0.5 MG/2.5 ML AMP HHN ×2 (13:54→20:02)
[2019-02-07] MEDS: POTASSIUM PHOSPHATE 15 MM in SOD CHLORIDE 0.9% 250 ML IVPB (18:55)
[2019-02-07] MEDS: ATORVASTATIN 40 MG TAB PO (21:04)
[2019-02-07] MEDS: INSULIN GLARGINE [LANTus] (100 UNITS/ML) SYG SC (21:11)
[2019-02-08] MEDS: INSULIN ASPART [NOVOLOG] 3 ML PEN SC ×6 (01:00→21:45)
[2019-02-08] MEDS: LEVALBUTEROL (NEB) 1.25 MG/0.5 ML AMP HHN ×4 (02:07→19:18)
[2019-02-08] MEDS: IPRATROPIUM (NEB) 0.5 MG/2.5 ML AMP HHN ×4 (02:07→19:18)
[2019-02-08] MEDS: ACETYLCYSTEINE 20% 4 ML VIAL NEB ×4 (02:08→19:19)
[2019-02-08] MEDS: D5W-0.45 NACL + KCL 20 MEQ 1,000 ML IV ×2 (04:30→23:41)
[2019-02-08] MEDS: FENTAnyl (DRIP) 1000 mcg/100mL 100 ML IV (04:56)
[2019-02-08 05:02] LABS: ADD MAN DIFF? NO
[2019-02-08 05:10] LABS: BASOPHILS % 0.2 % (0.0-2.0); EOSINOPHILS % 0.3 % (0.0-7.0); HEMOGLOBIN 11.4 g/dl (14.0-18.0); LYMPHOCYTES # 0.6 10^3/ul (0.8-2.9); LYMPHOCYTES % 6.8 % (15.0-51.0); MEAN CORPUSCULAR HEMOGLOBIN 26.5 pg (29.0-33.0); MEAN CORPUSCULAR HGB CONC 31.7 g/dl (32.0-37.0); MEAN CORPUSCULAR VOLUME 83.5 fl (82.0-101.0); MEAN PLATELET VOLUME 9.1 fl (7.4-10.4); MONOCYTE # 0.9 10^3/ul (0.3-0.9); MONOCYTES % 9.5 % (0.0-11.0); NEUTROPHIL # 7.6 10^3/ul (1.6-7.5); NEUTROPHILS % 82.4 % (39.0-77.0); PLATELET COUNT 262 10^3/UL (140-415); RED BLOOD COUNT 4.31 10^6/ul (4.70-6.10); RED CELL DISTRIBUTION WIDTH 15.5 % (11.5-14.5)
[2019-02-08 05:10] LABS: WHITE BLOOD COUNT 9.2 10^3/ul (4.8-10.8)
[2019-02-08 05:36] LABS: ANION GAP 3 (5-13); BLOOD UREA NITROGEN 16 mg/dl (7-20); CALCIUM 8.9 mg/dl (8.4-10.2); CARBON DIOXIDE 30 mmol/L (21-31); CHLORIDE 105 mmol/L (97-110); CREATININE 0.65 mg/dl (0.61-1.24); GLUCOSE 169 mg/dl (70-220); POTASSIUM 3.4 mmol/L (3.5-5.1); SODIUM 138 mmol/L (135-144)
[2019-02-08 07:18] LABS: MAGNESIUM 2.2 mg/dl (1.7-2.5)
[2019-02-08] MEDS: NIFEdipine 10 MG CAP GTB ×3 (10:01→21:48)
[2019-02-08] MEDS: HYDROCORTISONE 25 MG SUPP PR ×2 (10:01→21:48)
[2019-02-08] MEDS: FINASTERIDE 5 MG TAB PO (10:01)
[2019-02-08] MEDS: LISINOPRIL 20 MG TAB PO (10:01)
[2019-02-08] MEDS: METHYLPREDNISOLONE 40 MG INJ IV (10:04)
[2019-02-08] MEDS: DOCUSATE SODIUM 10 MG/ML (10ML CUP) GTB ×2 (10:05→21:48)
[2019-02-08] MEDS: ENOXAPARIN 40 MG/0.4 ML SYG SC (10:06)
[2019-02-08] MEDS: FAMOTIDINE 20 MG INJ IV (10:08)
[2019-02-08] MEDS ORDERED: INSULIN GLARGINE [LANTus] (100 UNITS/ML) SYG SC (21:00)
[2019-02-08] MEDS: ATORVASTATIN 40 MG TAB PO (21:48)
[2019-02-08] MEDS: INSULIN GLARGINE [LANTus] (100 UNITS/ML) SYG SC (21:51)
[2019-02-09] MEDS: ACETYLCYSTEINE 20% 4 ML VIAL NEB ×4 (01:47→15:56)
[2019-02-09] MEDS: LEVALBUTEROL (NEB) 1.25 MG/0.5 ML AMP HHN ×4 (01:47→22:00)
[2019-02-09] MEDS: IPRATROPIUM (NEB) 0.5 MG/2.5 ML AMP HHN ×4 (01:47→15:56)
[2019-02-09] MEDS: INSULIN ASPART [NOVOLOG] 3 ML PEN SC ×6 (02:02→21:00)
[2019-02-09] MEDS: DOCUSATE SODIUM 10 MG/ML (10ML CUP) GTB ×2 (07:36→22:07)
[2019-02-09] MEDS: NIFEdipine 10 MG CAP GTB ×3 (07:36→22:08)
[2019-02-09] MEDS: FINASTERIDE 5 MG TAB PO (09:00)
[2019-02-09] MEDS: LISINOPRIL 20 MG TAB PO (09:00)
[2019-02-09] MEDS ORDERED: HYDROCHLOROTHIAZIDE 25 MG TAB PO (09:00)
[2019-02-09] MEDS: METHYLPREDNISOLONE 40 MG INJ IV (10:22)
[2019-02-09] MEDS: FAMOTIDINE 20 MG INJ IV (10:23)
[2019-02-09] MEDS: HYDROCORTISONE 25 MG SUPP PR ×2 (10:25→22:07)
[2019-02-09] MEDS: ENOXAPARIN 40 MG/0.4 ML SYG SC (10:34)
[2019-02-09 11:23] LABS: PHOSPHORUS 2.4 mg/dl (2.5-4.9)
[2019-02-09 11:23] LABS: MAGNESIUM 2.3 mg/dl (1.7-2.5)
[2019-02-09 11:24] LABS: ANION GAP 6 (5-13); BLOOD UREA NITROGEN 20 mg/dl (7-20); CALCIUM 8.9 mg/dl (8.4-10.2); CARBON DIOXIDE 27 mmol/L (21-31); CHLORIDE 105 mmol/L (97-110); CREATININE 0.58 mg/dl (0.61-1.24); GLUCOSE 178 mg/dl (70-220); POTASSIUM 3.5 mmol/L (3.5-5.1); SODIUM 138 mmol/L (135-144)
[2019-02-09] MEDS ORDERED: BISACODYL 10 MG SUPP PR (15:30)
[2019-02-09] MEDS: CLONIDINE 0.1 MG/24 HR PATCH TRANSDERM (16:38)
[2019-02-09] MEDS: POTASSIUM PHOSPHATE 15 MM in SOD CHLORIDE 0.9% 250 ML IVPB (16:38)
[2019-02-09] MEDS: KETOROLAC 30 MG INJ IV (17:58)
[2019-02-09] MEDS: INSULIN GLARGINE [LANTus] (100 UNITS/ML) SYG SC (21:00)
[2019-02-09] MEDS ORDERED: LEVALBUTEROL (NEB) 1.25 MG/0.5 ML AMP HHN (22:00)
[2019-02-09] MEDS: ATORVASTATIN 40 MG TAB PO (22:07)
[2019-02-09] MEDS: ACETAMINOPHEN 650 MG SUPP PR (22:09)
[2019-02-10] MEDS: IPRATROPIUM (NEB) 0.5 MG/2.5 ML AMP HHN ×5 (00:51→20:36)
[2019-02-10] MEDS: LEVALBUTEROL (NEB) 1.25 MG/0.5 ML AMP HHN ×5 (00:53→20:36)
[2019-02-10] MEDS: ACETYLCYSTEINE 20% 4 ML VIAL NEB ×5 (00:53→20:36)
[2019-02-10] MEDS: INSULIN ASPART [NOVOLOG] 3 ML PEN SC ×6 (01:00→22:09)
[2019-02-10] MEDS: D5W-0.45 NACL + KCL 20 MEQ 1,000 ML IV ×2 (01:32→17:53)
[2019-02-10] MEDS: FAMOTIDINE 20 MG INJ IV (08:36)
[2019-02-10] MEDS: NIFEdipine 10 MG CAP GTB ×3 (08:36→21:21)
[2019-02-10] MEDS: DOCUSATE SODIUM 10 MG/ML (10ML CUP) GTB ×2 (08:36→21:21)
[2019-02-10] MEDS: HYDROCORTISONE 25 MG SUPP PR ×2 (08:36→21:21)
[2019-02-10] MEDS: FINASTERIDE 5 MG TAB PO (08:37)
[2019-02-10] MEDS: METHYLPREDNISOLONE 40 MG INJ IV (08:37)
[2019-02-10] MEDS: ENOXAPARIN 40 MG/0.4 ML SYG SC (08:41)
[2019-02-10 11:43] LABS: ADD MAN DIFF? NO
[2019-02-10 11:47] LABS: ABNORMAL IP MESSAGE 1; BASOPHILS % 0.3 % (0.0-2.0); EOSINOPHILS # 0.1 10^3/ul (0.0-0.5); EOSINOPHILS % 0.9 % (0.0-7.0); HEMATOCRIT 34.5 % (42.0-52.0); HEMOGLOBIN 10.6 g/dl (14.0-18.0); LYMPHOCYTES # 0.4 10^3/ul (0.8-2.9); LYMPHOCYTES % 3.4 % (15.0-51.0); MEAN CORPUSCULAR HEMOGLOBIN 25.9 pg (29.0-33.0); MEAN CORPUSCULAR HGB CONC 30.7 g/dl (32.0-37.0); MEAN CORPUSCULAR VOLUME 84.4 fl (82.0-101.0); MEAN PLATELET VOLUME 9.3 fl (7.4-10.4); MONOCYTE # 0.8 10^3/ul (0.3-0.9); MONOCYTES % 7.5 % (0.0-11.0); NEUTROPHIL # 9.7 10^3/ul (1.6-7.5); NEUTROPHILS % 86.7 % (39.0-77.0); PLATELET COUNT 260 10^3/UL (140-415); POSITIVE DIFF @See below; RED BLOOD COUNT 4.09 10^6/ul (4.70-6.10); RED CELL DISTRIBUTION WIDTH 15.3 % (11.5-14.5)
[2019-02-10 11:47] LABS: WHITE BLOOD COUNT 11.2 10^3/ul (4.8-10.8)
[2019-02-10 12:05] LABS: PHOSPHORUS 2.9 mg/dl (2.5-4.9)
[2019-02-10 12:05] LABS: ANION GAP 6 (5-13); BLOOD UREA NITROGEN 23 mg/dl (7-20); CALCIUM 8.7 mg/dl (8.4-10.2); CARBON DIOXIDE 26 mmol/L (21-31); CHLORIDE 107 mmol/L (97-110); CREATININE 0.61 mg/dl (0.61-1.24); GLUCOSE 173 mg/dl (70-220); MAGNESIUM 2.3 mg/dl (1.7-2.5); POTASSIUM 3.9 mmol/L (3.5-5.1); SODIUM 139 mmol/L (135-144)
[2019-02-10] MEDS: ENALAPRILAT 1.25 MG INJ IV (13:03)
[2019-02-10] MEDS: KETOROLAC 30 MG INJ IV (13:24)
[2019-02-10] MEDS: ATORVASTATIN 40 MG TAB PO (21:20)
[2019-02-11] MEDS: INSULIN GLARGINE [LANTus] (100 UNITS/ML) SYG SC ×2 (00:12→21:34)
[2019-02-11] MEDS: INSULIN ASPART [NOVOLOG] 3 ML PEN SC ×6 (01:00→21:00)
[2019-02-11] MEDS: ACETYLCYSTEINE 20% 4 ML VIAL NEB ×6 (01:11→20:40)
[2019-02-11] MEDS: LEVALBUTEROL (NEB) 1.25 MG/0.5 ML AMP HHN ×6 (01:11→20:40)
[2019-02-11] MEDS: IPRATROPIUM (NEB) 0.5 MG/2.5 ML AMP HHN ×6 (01:11→20:40)
[2019-02-11] MEDS: KETOROLAC 30 MG INJ IV (07:31)
[2019-02-11] MEDS: FAMOTIDINE 20 MG INJ IV (08:25)
[2019-02-11] MEDS: DOCUSATE SODIUM 10 MG/ML (10ML CUP) GTB ×2 (08:25→21:30)
[2019-02-11] MEDS: NIFEdipine 10 MG CAP GTB ×3 (08:25→21:31)
[2019-02-11] MEDS: HYDROCORTISONE 25 MG SUPP PR ×2 (08:25→21:31)
[2019-02-11] MEDS: FINASTERIDE 5 MG TAB PO (08:25)
[2019-02-11] MEDS: METHYLPREDNISOLONE 40 MG INJ IV (08:25)
[2019-02-11] MEDS: ENOXAPARIN 40 MG/0.4 ML SYG SC (08:35)
[2019-02-11] MEDS: D5W-0.45 NACL + KCL 20 MEQ 1,000 ML IV (14:26)
[2019-02-11] MEDS ORDERED: ACETAMINOPHEN 650MG/20.3ML CUP PO (15:30)
[2019-02-11] MEDS: ENALAPRILAT 1.25 MG INJ IV (18:41)
[2019-02-11] MEDS: ATORVASTATIN 40 MG TAB PO (21:31)
[2019-02-11] MEDS: ZOLPIDEM 5 MG TAB PO (23:02)
[2019-02-12] MEDS: ACETYLCYSTEINE 20% 4 ML VIAL NEB ×6 (00:45→20:34)
[2019-02-12] MEDS: LEVALBUTEROL (NEB) 1.25 MG/0.5 ML AMP HHN ×6 (00:45→20:23)
[2019-02-12] MEDS: IPRATROPIUM (NEB) 0.5 MG/2.5 ML AMP HHN ×6 (00:45→20:23)
[2019-02-12] MEDS: INSULIN ASPART [NOVOLOG] 3 ML PEN SC ×6 (01:00→21:00)
[2019-02-12] MEDS: KETOROLAC 30 MG INJ IV (01:12)
[2019-02-12] MEDS: LORAZEPAM 2 MG INJ IV (01:44)
[2019-02-12] MEDS: HYDROCORTISONE 25 MG SUPP PR ×2 (08:39→21:18)
[2019-02-12] MEDS: FINASTERIDE 5 MG TAB PO (09:00)
[2019-02-12] MEDS: HYDROCHLOROTHIAZIDE 25 MG TAB PO (09:00)
[2019-02-12] MEDS: NIFEdipine 10 MG CAP GTB ×3 (09:00→21:00)
[2019-02-12] MEDS: DOCUSATE SODIUM 10 MG/ML (10ML CUP) GTB ×2 (09:00→21:00)
[2019-02-12] MEDS: ENOXAPARIN 40 MG/0.4 ML SYG SC (09:04)
[2019-02-12] MEDS: FAMOTIDINE 20 MG INJ IV (09:17)
[2019-02-12] MEDS: METHYLPREDNISOLONE 40 MG INJ IV (09:17)
[2019-02-12] MEDS: ENALAPRILAT 1.25 MG INJ IV ×2 (09:23→17:41)
[2019-02-12] MEDS: D5W-0.45 NACL + KCL 20 MEQ 1,000 ML IV (09:25)
[2019-02-12] MEDS: SOD CHLORIDE 0.9% 100 ML (16:53)
[2019-02-12] MEDS: IOHEXOL 300MG/ML 150 ML BTL (16:53)
[2019-02-12] MEDS: ATORVASTATIN 40 MG TAB PO (21:00)
[2019-02-12] MEDS: INSULIN GLARGINE [LANTus] (100 UNITS/ML) SYG SC (21:23)
[2019-02-13] MEDS: INSULIN ASPART [NOVOLOG] 3 ML PEN SC ×6 (01:00→21:00)
[2019-02-13] MEDS: LEVALBUTEROL (NEB) 1.25 MG/0.5 ML AMP HHN ×6 (01:41→20:29)
[2019-02-13] MEDS: IPRATROPIUM (NEB) 0.5 MG/2.5 ML AMP HHN ×6 (01:41→20:29)
[2019-02-13] MEDS: ACETYLCYSTEINE 20% 4 ML VIAL NEB ×6 (01:54→20:30)
[2019-02-13] MEDS: D5W-0.45 NACL + KCL 20 MEQ 1,000 ML IV (05:47)
[2019-02-13] MEDS: HYDROCORTISONE 25 MG SUPP PR ×2 (08:49→22:03)
[2019-02-13] MEDS: ENOXAPARIN 40 MG/0.4 ML SYG SC (08:49)
[2019-02-13] MEDS: METHYLPREDNISOLONE 40 MG INJ IV (08:49)
[2019-02-13] MEDS: FINASTERIDE 5 MG TAB PO (08:50)
[2019-02-13] MEDS: NIFEdipine 10 MG CAP GTB ×3 (08:50→21:00)
[2019-02-13] MEDS: HYDROCHLOROTHIAZIDE 25 MG TAB PO (08:50)
[2019-02-13] MEDS: DOCUSATE SODIUM 10 MG/ML (10ML CUP) GTB ×2 (08:50→21:00)
[2019-02-13] MEDS: FAMOTIDINE 20 MG INJ IV (08:50)
[2019-02-13] MEDS: LISINOPRIL 20 MG TAB PO (08:51)
[2019-02-13] MEDS: ATORVASTATIN 40 MG TAB PO (21:00)
[2019-02-13] MEDS: INSULIN GLARGINE [LANTus] (100 UNITS/ML) SYG SC (22:07)
[2019-02-14] MEDS: INSULIN ASPART [NOVOLOG] 3 ML PEN SC ×6 (01:00→21:54)
[2019-02-14] MEDS: IPRATROPIUM (NEB) 0.5 MG/2.5 ML AMP HHN ×6 (01:24→20:00)
[2019-02-14] MEDS: LEVALBUTEROL (NEB) 1.25 MG/0.5 ML AMP HHN ×6 (01:24→20:00)
[2019-02-14] MEDS: ACETYLCYSTEINE 20% 4 ML VIAL NEB ×6 (01:24→20:00)
[2019-02-14] MEDS: ACETAMINOPHEN 650 MG SUPP PR (05:46)
[2019-02-14 08:05] LABS: ADD MAN DIFF? NO
[2019-02-14 08:10] LABS: BASOPHILS % 0.5 % (0.0-2.0); EOSINOPHILS # 0.2 10^3/ul (0.0-0.5); EOSINOPHILS % 2.1 % (0.0-7.0); HEMATOCRIT 34.2 % (42.0-52.0); HEMOGLOBIN 10.5 g/dl (14.0-18.0); LYMPHOCYTES # 0.7 10^3/ul (0.8-2.9); LYMPHOCYTES % 8.6 % (15.0-51.0); MEAN CORPUSCULAR HEMOGLOBIN 25.5 pg (29.0-33.0); MEAN CORPUSCULAR HGB CONC 30.7 g/dl (32.0-37.0); MEAN PLATELET VOLUME 9.5 fl (7.4-10.4); MONOCYTE # 0.7 10^3/ul (0.3-0.9); NEUTROPHIL # 6.6 10^3/ul (1.6-7.5); NEUTROPHILS % 80.3 % (39.0-77.0); PLATELET COUNT 267 10^3/UL (140-415); RED BLOOD COUNT 4.12 10^6/ul (4.70-6.10); RED CELL DISTRIBUTION WIDTH 14.8 % (11.5-14.5)
[2019-02-14 08:10] LABS: WHITE BLOOD COUNT 8.2 10^3/ul (4.8-10.8)
[2019-02-14 08:36] LABS: ANION GAP 5 (5-13); BLOOD UREA NITROGEN 12 mg/dl (7-20); CALCIUM 8.1 mg/dl (8.4-10.2); CARBON DIOXIDE 27 mmol/L (21-31); CHLORIDE 104 mmol/L (97-110); CREATININE 0.64 mg/dl (0.61-1.24); GLUCOSE 108 mg/dl (70-220); MAGNESIUM 2.2 mg/dl (1.7-2.5); POTASSIUM 3.3 mmol/L (3.5-5.1); SODIUM 136 mmol/L (135-144)
[2019-02-14] MEDS: LISINOPRIL 20 MG TAB PO (09:00)
[2019-02-14] MEDS: HYDROCHLOROTHIAZIDE 25 MG TAB PO (09:00)
[2019-02-14] MEDS: FINASTERIDE 5 MG TAB PO (09:00)
[2019-02-14] MEDS: NIFEdipine 10 MG CAP GTB ×3 (09:00→21:00)
[2019-02-14] MEDS: DOCUSATE SODIUM 10 MG/ML (10ML CUP) GTB ×2 (09:00→21:00)
[2019-02-14] MEDS: FAMOTIDINE 20 MG INJ IV (10:00)
[2019-02-14] MEDS: METHYLPREDNISOLONE 40 MG INJ IV (10:00)
[2019-02-14] MEDS: ENOXAPARIN 40 MG/0.4 ML SYG SC (10:00)
[2019-02-14] MEDS: HYDROCORTISONE 25 MG SUPP PR ×2 (10:00→21:58)
[2019-02-14] MEDS: POTASSIUM CHLORIDE 100 ML IVPB ×2 (11:56→13:40)
[2019-02-14] MEDS ORDERED: POTASSIUM CHLORIDE 20 MEQ POWDER FOR ORAL SOLN PO (12:30)
[2019-02-14] MEDS: NYSTATIN SUSP 5 ML CUP PO ×3 (17:08→21:58)
[2019-02-14] MEDS: PROPOFOL 40 ML (19:08)
[2019-02-14] MEDS: ATORVASTATIN 40 MG TAB PO (21:50)
[2019-02-14] MEDS: INSULIN GLARGINE [LANTus] (100 UNITS/ML) SYG SC (21:53)
[2019-02-15] MEDS: INSULIN ASPART [NOVOLOG] 3 ML PEN SC ×6 (01:00→21:22)
[2019-02-15] MEDS: LEVALBUTEROL (NEB) 1.25 MG/0.5 ML AMP HHN ×6 (01:25→20:14)
[2019-02-15] MEDS: ACETYLCYSTEINE 20% 4 ML VIAL NEB ×6 (01:25→20:14)
[2019-02-15] MEDS: IPRATROPIUM (NEB) 0.5 MG/2.5 ML AMP HHN ×6 (01:25→20:13)
[2019-02-15] MEDS: LORAZEPAM 2 MG INJ IV (02:27)
[2019-02-15 08:51] LABS: ADD MAN DIFF? NO
[2019-02-15] MEDS: METHYLPREDNISOLONE 40 MG INJ IV (08:56)
[2019-02-15] MEDS: FAMOTIDINE 20 MG INJ IV (08:57)
[2019-02-15] MEDS: ENOXAPARIN 40 MG/0.4 ML SYG SC (08:57)
[2019-02-15] MEDS: DOCUSATE SODIUM 10 MG/ML (10ML CUP) GTB ×2 (08:58→21:00)
[2019-02-15] MEDS: LISINOPRIL 20 MG TAB PO (08:58)
[2019-02-15] MEDS: HYDROCORTISONE 25 MG SUPP PR ×2 (08:58→21:13)
[2019-02-15] MEDS: HYDROCHLOROTHIAZIDE 25 MG TAB PO (08:58)
[2019-02-15] MEDS: NIFEdipine 10 MG CAP GTB ×3 (08:58→21:00)
[2019-02-15] MEDS: FINASTERIDE 5 MG TAB PO (08:58)
[2019-02-15 09:02] LABS: BASOPHILS % 0.4 % (0.0-2.0); EOSINOPHILS # 0.1 10^3/ul (0.0-0.5); EOSINOPHILS % 0.8 % (0.0-7.0); HEMATOCRIT 34.8 % (42.0-52.0); HEMOGLOBIN 10.6 g/dl (14.0-18.0); LYMPHOCYTES # 0.9 10^3/ul (0.8-2.9); LYMPHOCYTES % 7.7 % (15.0-51.0); MEAN CORPUSCULAR HEMOGLOBIN 25.6 pg (29.0-33.0); MEAN CORPUSCULAR HGB CONC 30.5 g/dl (32.0-37.0); MEAN CORPUSCULAR VOLUME 84.1 fl (82.0-101.0); MEAN PLATELET VOLUME 9.4 fl (7.4-10.4); MONOCYTES % 8.7 % (0.0-11.0); NEUTROPHIL # 9.2 10^3/ul (1.6-7.5); NEUTROPHILS % 81.5 % (39.0-77.0); PLATELET COUNT 326 10^3/UL (140-415); RED BLOOD COUNT 4.14 10^6/ul (4.70-6.10); RED CELL DISTRIBUTION WIDTH 14.6 % (11.5-14.5)
[2019-02-15 09:02] LABS: WHITE BLOOD COUNT 11.2 10^3/ul (4.8-10.8)
[2019-02-15 09:20] LABS: ANION GAP 7 (5-13); BLOOD UREA NITROGEN 18 mg/dl (7-20); CALCIUM 8.8 mg/dl (8.4-10.2); CARBON DIOXIDE 24 mmol/L (21-31); CHLORIDE 107 mmol/L (97-110); CREATININE 0.73 mg/dl (0.61-1.24); GLUCOSE 107 mg/dl (70-220); POTASSIUM 3.6 mmol/L (3.5-5.1); SODIUM 138 mmol/L (135-144)
[2019-02-15] MEDS: NYSTATIN SUSP 5 ML CUP PO ×3 (14:07→21:00)
[2019-02-15] MEDS: D5W-0.45 NACL + KCL 20 MEQ 1,000 ML IV (17:03)
[2019-02-15] MEDS: ATORVASTATIN 40 MG TAB PO (21:00)
[2019-02-15] MEDS: INSULIN GLARGINE [LANTus] (100 UNITS/ML) SYG SC (21:21)
[2019-02-16] MEDS: ACETYLCYSTEINE 20% 4 ML VIAL NEB ×6 (00:57→20:13)
[2019-02-16] MEDS: IPRATROPIUM (NEB) 0.5 MG/2.5 ML AMP HHN ×6 (00:57→20:13)
[2019-02-16] MEDS: LEVALBUTEROL (NEB) 1.25 MG/0.5 ML AMP HHN ×6 (00:58→20:13)
[2019-02-16] MEDS: INSULIN ASPART [NOVOLOG] 3 ML PEN SC ×6 (01:00→22:00)
[2019-02-16] MEDS: D5W-0.45 NACL + KCL 20 MEQ 1,000 ML IV ×2 (05:51→17:30)
[2019-02-16] MEDS: DOCUSATE SODIUM 10 MG/ML (10ML CUP) GTB ×2 (08:48→21:00)
[2019-02-16] MEDS: NIFEdipine 10 MG CAP GTB ×3 (08:48→21:00)
[2019-02-16] MEDS: LISINOPRIL 20 MG TAB PO (08:49)
[2019-02-16] MEDS: HYDROCHLOROTHIAZIDE 25 MG TAB PO (08:49)
[2019-02-16] MEDS: FINASTERIDE 5 MG TAB PO (08:49)
[2019-02-16] MEDS: FAMOTIDINE 20 MG INJ IV (09:01)
[2019-02-16] MEDS: METHYLPREDNISOLONE 40 MG INJ IV (09:02)
[2019-02-16] MEDS: HYDROCORTISONE 25 MG SUPP PR ×2 (09:02→21:55)
[2019-02-16] MEDS: NYSTATIN SUSP 5 ML CUP PO ×4 (09:02→21:55)
[2019-02-16] MEDS: ENOXAPARIN 40 MG/0.4 ML SYG SC (09:02)
[2019-02-16] MEDS: CLONIDINE 0.1 MG/24 HR PATCH TRANSDERM (18:31)
[2019-02-16] MEDS: ATORVASTATIN 40 MG TAB PO (21:00)
[2019-02-16] MEDS: INSULIN GLARGINE [LANTus] (100 UNITS/ML) SYG SC (22:00)
[2019-02-17] MEDS: ACETYLCYSTEINE 20% 4 ML VIAL NEB ×5 (01:12→17:45)
[2019-02-17] MEDS: LEVALBUTEROL (NEB) 1.25 MG/0.5 ML AMP HHN ×5 (01:12→17:45)
[2019-02-17] MEDS: IPRATROPIUM (NEB) 0.5 MG/2.5 ML AMP HHN ×5 (01:12→17:45)
[2019-02-17] MEDS: INSULIN ASPART [NOVOLOG] 3 ML PEN SC ×6 (02:47→22:20)
[2019-02-17] MEDS: D5W-0.45 NACL + KCL 20 MEQ 1,000 ML IV ×3 (05:57→21:40)
[2019-02-17] MEDS: NIFEdipine 10 MG CAP GTB ×3 (09:00→21:00)
[2019-02-17] MEDS: FINASTERIDE 5 MG TAB PO (09:00)
[2019-02-17] MEDS: DOCUSATE SODIUM 10 MG/ML (10ML CUP) GTB ×2 (09:00→21:00)
[2019-02-17] MEDS: HYDROCHLOROTHIAZIDE 25 MG TAB PO (09:00)
[2019-02-17] MEDS: LISINOPRIL 20 MG TAB PO (09:00)
[2019-02-17] MEDS: FAMOTIDINE 20 MG INJ IV (09:23)
[2019-02-17] MEDS: METHYLPREDNISOLONE 40 MG INJ IV (09:23)
[2019-02-17] MEDS: NYSTATIN SUSP 5 ML CUP PO ×4 (09:24→21:40)
[2019-02-17] MEDS: HYDROCORTISONE 25 MG SUPP PR ×2 (09:24→21:40)
[2019-02-17] MEDS: ENOXAPARIN 40 MG/0.4 ML SYG SC (09:46)
[2019-02-17] MEDS: ACETAMINOPHEN 650 MG SUPP PR (10:04)
[2019-02-17] MEDS: ENALAPRILAT 1.25 MG INJ IV (15:41)
[2019-02-17] MEDS: ATORVASTATIN 40 MG TAB PO (21:00)
[2019-02-17] MEDS: INSULIN GLARGINE [LANTus] (100 UNITS/ML) SYG SC (22:19)
[2019-02-17] MEDS: CLONIDINE 0.2 MG/24 HR PATCH TRANSDERM (22:25)
[2019-02-18] MEDS: ACETYLCYSTEINE 20% 4 ML VIAL NEB ×4 (00:47→23:32)
[2019-02-18] MEDS: IPRATROPIUM (NEB) 0.5 MG/2.5 ML AMP HHN ×4 (00:47→23:20)
[2019-02-18] MEDS: LEVALBUTEROL (NEB) 1.25 MG/0.5 ML AMP HHN ×4 (00:47→23:20)
[2019-02-18] MEDS: INSULIN ASPART [NOVOLOG] 3 ML PEN SC ×6 (01:00→21:50)
[2019-02-18] MEDS: D5W-0.45 NACL + KCL 20 MEQ 1,000 ML IV ×3 (07:00→20:27)
[2019-02-18] MEDS: DOCUSATE SODIUM 10 MG/ML (10ML CUP) GTB ×2 (09:00→21:00)
[2019-02-18] MEDS: LISINOPRIL 20 MG TAB PO (09:00)
[2019-02-18] MEDS: FINASTERIDE 5 MG TAB PO (09:00)
[2019-02-18] MEDS: HYDROCHLOROTHIAZIDE 25 MG TAB PO (09:00)
[2019-02-18] MEDS: NIFEdipine 10 MG CAP GTB ×3 (09:00→21:00)
[2019-02-18] MEDS: NYSTATIN SUSP 5 ML CUP PO ×4 (09:00→22:06)
[2019-02-18] MEDS: METHYLPREDNISOLONE 40 MG INJ IV (09:20)
[2019-02-18] MEDS: FAMOTIDINE 20 MG INJ IV (09:20)
[2019-02-18] MEDS: HYDROCORTISONE 25 MG SUPP PR ×2 (09:21→22:06)
[2019-02-18] MEDS: ENOXAPARIN 40 MG/0.4 ML SYG SC (09:41)
[2019-02-18] MEDS: ENALAPRILAT 1.25 MG INJ IV (09:42)
[2019-02-18] MEDS: ATORVASTATIN 40 MG TAB PO (21:00)
[2019-02-18] MEDS: INSULIN GLARGINE [LANTus] (100 UNITS/ML) SYG SC (22:06)
[2019-02-18] MEDS: ACETAMINOPHEN 650 MG SUPP PR (23:00)
[2019-02-19] MEDS: INSULIN GLARGINE [LANTus] (100 UNITS/ML) SYG SC ×2 (00:59→22:30)
[2019-02-19] MEDS: ENALAPRILAT 1.25 MG INJ IV (00:59)
[2019-02-19] MEDS: INSULIN ASPART [NOVOLOG] 3 ML PEN SC ×6 (01:00→22:19)
[2019-02-19] MEDS: LEVALBUTEROL (NEB) 1.25 MG/0.5 ML AMP HHN ×3 (07:54→23:49)
[2019-02-19] MEDS: IPRATROPIUM (NEB) 0.5 MG/2.5 ML AMP HHN ×3 (07:55→23:49)
[2019-02-19] MEDS: ACETYLCYSTEINE 20% 4 ML VIAL NEB ×3 (07:56→23:59)
[2019-02-19 08:45] LABS: ADD MAN DIFF? NO
[2019-02-19 08:47] LABS: BASOPHILS % 0.4 % (0.0-2.0); EOSINOPHILS # 0.1 10^3/ul (0.0-0.5); EOSINOPHILS % 1.5 % (0.0-7.0); HEMATOCRIT 35.3 % (42.0-52.0); HEMOGLOBIN 10.9 g/dl (14.0-18.0); LYMPHOCYTES # 1.2 10^3/ul (0.8-2.9); LYMPHOCYTES % 17.3 % (15.0-51.0); MEAN CORPUSCULAR HEMOGLOBIN 25.2 pg (29.0-33.0); MEAN CORPUSCULAR HGB CONC 30.9 g/dl (32.0-37.0); MEAN CORPUSCULAR VOLUME 81.7 fl (82.0-101.0); MEAN PLATELET VOLUME 9.2 fl (7.4-10.4); MONOCYTE # 0.7 10^3/ul (0.3-0.9); MONOCYTES % 9.9 % (0.0-11.0); NEUTROPHIL # 4.7 10^3/ul (1.6-7.5); NEUTROPHILS % 68.7 % (39.0-77.0); PLATELET COUNT 337 10^3/UL (140-415); RED BLOOD COUNT 4.32 10^6/ul (4.70-6.10); RED CELL DISTRIBUTION WIDTH 14.5 % (11.5-14.5)
[2019-02-19 08:47] LABS: WHITE BLOOD COUNT 6.9 10^3/ul (4.8-10.8)
[2019-02-19] MEDS: NIFEdipine 10 MG CAP GTB ×3 (09:00→22:16)
[2019-02-19] MEDS: FINASTERIDE 5 MG TAB PO (09:00)
[2019-02-19] MEDS: METHYLPREDNISOLONE 40 MG INJ IV (09:00)
[2019-02-19] MEDS: FAMOTIDINE 20 MG INJ IV (09:00)
[2019-02-19] MEDS: HYDROCHLOROTHIAZIDE 25 MG TAB PO (09:00)
[2019-02-19] MEDS: LISINOPRIL 20 MG TAB PO (09:00)
[2019-02-19] MEDS: DOCUSATE SODIUM 10 MG/ML (10ML CUP) GTB ×2 (09:00→22:15)
[2019-02-19 09:15] LABS: ANION GAP 6 (5-13); BLOOD UREA NITROGEN 12 mg/dl (7-20); CALCIUM 8.8 mg/dl (8.4-10.2); CARBON DIOXIDE 26 mmol/L (21-31); CHLORIDE 104 mmol/L (97-110); CREATININE 0.66 mg/dl (0.61-1.24); GLUCOSE 102 mg/dl (70-220); SODIUM 136 mmol/L (135-144)
[2019-02-19 09:16] LABS: PHOSPHORUS 2.6 mg/dl (2.5-4.9)
[2019-02-19] MEDS: HYDROCORTISONE 25 MG SUPP PR ×2 (10:01→22:19)
[2019-02-19] MEDS: ENOXAPARIN 40 MG/0.4 ML SYG SC (11:38)
[2019-02-19] MEDS: NYSTATIN SUSP 5 ML CUP PO ×4 (13:00→22:19)
[2019-02-19] MEDS: D5W-0.45 NACL + KCL 20 MEQ 1,000 ML IV (16:27)
[2019-02-19] MEDS: ATORVASTATIN 40 MG TAB PO (22:16)
[2019-02-20] MEDS: INSULIN ASPART [NOVOLOG] 3 ML PEN SC ×6 (01:45→20:18)
[2019-02-20] MEDS: ENALAPRILAT 1.25 MG INJ IV (02:12)
[2019-02-20] MEDS: D5W-0.45 NACL + KCL 20 MEQ 1,000 ML IV (02:20)
[2019-02-20] MEDS: ACETYLCYSTEINE 20% 4 ML VIAL NEB ×3 (08:10→23:19)
[2019-02-20] MEDS: IPRATROPIUM (NEB) 0.5 MG/2.5 ML AMP HHN ×3 (08:10→23:19)
[2019-02-20] MEDS: LEVALBUTEROL (NEB) 1.25 MG/0.5 ML AMP HHN ×3 (08:10→23:19)
[2019-02-20] MEDS: DOCUSATE SODIUM 10 MG/ML (10ML CUP) GTB ×2 (09:00→20:20)
[2019-02-20] MEDS: FINASTERIDE 5 MG TAB PO (09:00)
[2019-02-20] MEDS: LISINOPRIL 20 MG TAB PO (09:00)
[2019-02-20] MEDS: NIFEdipine 10 MG CAP GTB ×3 (09:00→20:20)
[2019-02-20] MEDS: FAMOTIDINE 20 MG INJ IV (10:39)
[2019-02-20] MEDS: HYDROCORTISONE 25 MG SUPP PR ×2 (10:39→20:21)
[2019-02-20] MEDS: METHYLPREDNISOLONE 40 MG INJ IV (10:39)
[2019-02-20] MEDS: NYSTATIN SUSP 5 ML CUP PO ×4 (10:48→20:19)
[2019-02-20] MEDS: ENOXAPARIN 40 MG/0.4 ML SYG SC (10:55)
[2019-02-20 12:59] LABS: ADD MAN DIFF? NO
[2019-02-20 13:01] LABS: WHITE BLOOD COUNT 8.9 10^3/ul (4.8-10.8)
[2019-02-20 13:01] LABS: ABNORMAL IP MESSAGE 1; BASOPHIL # 0.1 10^3/ul (0.0-0.1); BASOPHILS % 0.6 % (0.0-2.0); EOSINOPHILS # 0.1 10^3/ul (0.0-0.5); EOSINOPHILS % 0.9 % (0.0-7.0); HEMATOCRIT 37.3 % (42.0-52.0); HEMOGLOBIN 11.4 g/dl (14.0-18.0); LYMPHOCYTES # 0.5 10^3/ul (0.8-2.9); LYMPHOCYTES % 5.6 % (15.0-51.0); MEAN CORPUSCULAR HEMOGLOBIN 25.3 pg (29.0-33.0); MEAN CORPUSCULAR HGB CONC 30.6 g/dl (32.0-37.0); MEAN CORPUSCULAR VOLUME 82.7 fl (82.0-101.0); MEAN PLATELET VOLUME 9.5 fl (7.4-10.4); MONOCYTE # 0.4 10^3/ul (0.3-0.9); MONOCYTES % 4.6 % (0.0-11.0); NEUTROPHIL # 7.7 10^3/ul (1.6-7.5); NEUTROPHILS % 87.1 % (39.0-77.0); PLATELET COUNT 347 10^3/UL (140-415); POSITIVE DIFF @See below; RED BLOOD COUNT 4.51 10^6/ul (4.70-6.10)
[2019-02-20 13:17] LABS: PHOSPHORUS 3.2 mg/dl (2.5-4.9)
[2019-02-20 13:19] LABS: ALANINE AMINOTRANSFERASE 15 IU/L (13-69); ALBUMIN 2.9 g/dl (3.3-4.9); ALBUMIN/GLOBULIN RATIO 0.87; ALKALINE PHOSPHATASE 171 IU/L (42-121); ANION GAP 8 (5-13); ASPARTATE AMINO TRANSFERASE 17 IU/L (15-46); BLOOD UREA NITROGEN 13 mg/dl (7-20); CALCIUM 8.6 mg/dl (8.4-10.2); CARBON DIOXIDE 24 mmol/L (21-31); CHLORIDE 105 mmol/L (97-110); CREATININE 0.58 mg/dl (0.61-1.24); GLUCOSE 122 mg/dl (70-220); POTASSIUM 3.2 mmol/L (3.5-5.1); SODIUM 137 mmol/L (135-144); TOTAL PROTEIN 6.2 g/dl (6.1-8.1); TRIGLYCERIDES 150 mg/dl (0-149)
[2019-02-20 13:39] LABS: PREALBUMIN 9.7 mg/dl (17.6-36.0)
[2019-02-20] MEDS: ATORVASTATIN 40 MG TAB PO (20:21)
[2019-02-20] MEDS: INSULIN GLARGINE [LANTus] (100 UNITS/ML) SYG SC (20:38)
[2019-02-21] MEDS: INSULIN ASPART [NOVOLOG] 3 ML PEN SC ×6 (01:00→20:45)
[2019-02-21 06:55] LABS: ANION GAP 7 (5-13); BLOOD UREA NITROGEN 13 mg/dl (7-20); CALCIUM 8.5 mg/dl (8.4-10.2); CARBON DIOXIDE 25 mmol/L (21-31); CHLORIDE 105 mmol/L (97-110); CREATININE 0.65 mg/dl (0.61-1.24); GLUCOSE 117 mg/dl (70-220); SODIUM 137 mmol/L (135-144)
[2019-02-21] MEDS: NIFEdipine 10 MG CAP GTB ×3 (08:16→20:34)
[2019-02-21] MEDS: DOCUSATE SODIUM 10 MG/ML (10ML CUP) GTB ×2 (08:16→20:34)
[2019-02-21] MEDS: LISINOPRIL 20 MG TAB PO (08:17)
[2019-02-21] MEDS: FINASTERIDE 5 MG TAB PO (08:17)
[2019-02-21] MEDS: NYSTATIN SUSP 5 ML CUP PO ×5 (08:17→20:46)
[2019-02-21] MEDS: METHYLPREDNISOLONE 40 MG INJ IV (08:27)
[2019-02-21] MEDS: FAMOTIDINE 20 MG INJ IV (08:27)
[2019-02-21] MEDS: HYDROCORTISONE 25 MG SUPP PR ×2 (08:27→20:35)
[2019-02-21] MEDS: ENOXAPARIN 40 MG/0.4 ML SYG SC (08:35)
[2019-02-21] MEDS: POTASSIUM CHLORIDE 100 ML IVPB ×2 (08:39→17:20)
[2019-02-21] MEDS: IPRATROPIUM (NEB) 0.5 MG/2.5 ML AMP HHN ×3 (08:43→23:59)
[2019-02-21] MEDS: ACETYLCYSTEINE 20% 4 ML VIAL NEB ×3 (08:43→23:59)
[2019-02-21] MEDS: LEVALBUTEROL (NEB) 1.25 MG/0.5 ML AMP HHN ×2 (08:43→16:34)
[2019-02-21] MEDS: ACCU-CHEK XX ×8 (09:00→21:09)
[2019-02-21] MEDS: ENALAPRILAT 1.25 MG INJ IV (13:09)
[2019-02-21 15:03] LABS: TROPONIN-I < 0.012 ng/ml (0.000-0.120)
[2019-02-21 15:35] LABS: POTASSIUM 3.4 mmol/L (3.5-5.1)
[2019-02-21] MEDS: TPN 1,000 ML IV (17:11)
[2019-02-21] MEDS: ATORVASTATIN 40 MG TAB PO (20:35)
[2019-02-21] MEDS: INSULIN GLARGINE [LANTus] (100 UNITS/ML) SYG SC (20:45)
[2019-02-22] MEDS: ENALAPRILAT 1.25 MG INJ IV ×3 (00:32→14:48)
[2019-02-22] MEDS: INSULIN ASPART [NOVOLOG] 3 ML PEN SC ×4 (01:01→12:48)
[2019-02-22] MEDS: ACCU-CHEK XX ×4 (01:02→12:48)
[2019-02-22 07:08] LABS: ANION GAP 6 (5-13); BLOOD UREA NITROGEN 18 mg/dl (7-20); CALCIUM 8.6 mg/dl (8.4-10.2); CARBON DIOXIDE 26 mmol/L (21-31); CHLORIDE 104 mmol/L (97-110); CREATININE 0.56 mg/dl (0.61-1.24); GLUCOSE 141 mg/dl (70-220); POTASSIUM 3.1 mmol/L (3.5-5.1); SODIUM 136 mmol/L (135-144)
[2019-02-22 07:16] LABS: PHOSPHORUS 2.1 mg/dl (2.5-4.9)
[2019-02-22 07:16] LABS: MAGNESIUM 2.1 mg/dl (1.7-2.5)
[2019-02-22] MEDS: LEVALBUTEROL (NEB) 1.25 MG/0.5 ML AMP HHN ×2 (07:51)
[2019-02-22] MEDS: IPRATROPIUM (NEB) 0.5 MG/2.5 ML AMP HHN (07:51)
[2019-02-22] MEDS: ACETYLCYSTEINE 20% 4 ML VIAL NEB (08:02)
[2019-02-22] MEDS: FAMOTIDINE 20 MG INJ IV (08:57)
[2019-02-22] MEDS: HYDROCORTISONE 25 MG SUPP PR (08:57)
[2019-02-22] MEDS: METHYLPREDNISOLONE 40 MG INJ IV (08:57)
[2019-02-22] MEDS: LISINOPRIL 20 MG TAB PO (09:00)
[2019-02-22] MEDS: NYSTATIN SUSP 5 ML CUP PO ×2 (09:00→12:30)
[2019-02-22] MEDS: DOCUSATE SODIUM 10 MG/ML (10ML CUP) GTB (09:00)
[2019-02-22] MEDS: FINASTERIDE 5 MG TAB PO (09:00)
[2019-02-22] MEDS: NIFEdipine 10 MG CAP GTB ×2 (09:00→12:30)
[2019-02-22] MEDS: ENOXAPARIN 40 MG/0.4 ML SYG SC (09:05)
[2019-02-22] MEDS: POTASSIUM PHOSPHATE 30 MM in SOD CHLORIDE 0.9% 250 ML IVPB (12:41)
== END 2019-02-22 15:53 | DRG 4 ==
LOC: E/R 03:27 → TEL 02-08 23:55 → ICU 08:39
PROC: 0B110F4 Bypass Trachea to Cutaneous with Tracheostomy Device, Open Approach (ICD-10-PCS; principal; 2019-02-04 20:30)
PROC: 0DJ08ZZ Inspection of Upper Intestinal Tract, Via Natural or Artificial Opening Endoscopic (ICD-10-PCS; 2019-02-04 20:50)
PROC: 5A1935Z Respiratory Ventilation, Less than 24 Consecutive Hours (ICD-10-PCS; 2019-02-04 20:50)
PROC: 0BH17EZ Insertion of Endotracheal Airway into Trachea, Via Natural or Artificial Opening (ICD-10-PCS; 2019-02-04 20:50)
DX: J96.01 Acute respiratory failure with hypoxia (principal); C78.39 Secondary malignant neoplasm of other respiratory organs; K56.7 Ileus, unspecified; J96.02 Acute respiratory failure with hypercapnia; C61 Malignant neoplasm of prostate; J44.9 Chronic obstructive pulmonary disease, unspecified; I10 Essential (primary) hypertension; E78.5 Hyperlipidemia, unspecified; E11.9 Type 2 diabetes mellitus without complications; N40.0 Benign prostatic hyperplasia without lower urinary tract symptoms; G47.33 Obstructive sleep apnea (adult) (pediatric); J38.6 Stenosis of larynx; R62.7 Adult failure to thrive; D64.9 Anemia, unspecified; E66.01 Morbid (severe) obesity due to excess calories; K29.70 Gastritis, unspecified, without bleeding; J39.2 Other diseases of pharynx; R13.10 Dysphagia, unspecified; B37.9 Candidiasis, unspecified; K64.9 Unspecified hemorrhoids; Z51.5 Encounter for palliative care; Z68.27 Body mass index [BMI] 27.0-27.9, adult; Z87.891 Personal history of nicotine dependence
CPT/HCPCS: 31500; 36415; 36573; 36600; 70491; 71045; 71260; 74018; 74176; 74230; 80048; 80053; 82803; 82962; 83605; 83735; 83880; 84100; 84132; 84134; 84153; 84154; 84443; 84478; 84484; 85025; 85610; 85730; 87070; 87081; 92507; 92523; 92526; 92610; 92611; 93005; 93306; 94002; 94003; 94640; 94644; 94660; 94664; 94668; 96374; 97110; 97116; 97163; 97530; 99285-25